=== PATIENT | male | born 1950 | race Caucasian/White ===

== ENCOUNTER 2019-04-27 11:04 | Emergency (ER) | payer MEDICARE ==
[2019-04-27] MEDS ORDERED: DIAZEPAM 5 MG TAB PO STA (12:19)
[2019-04-27] MEDS ORDERED: MECLIZINE 25 MG TAB PO STA (12:19)
--- NOTE | 2019-04-27 12:26 | ED ---
General Adult HPI - General Chief complaint: Neuro Symptoms/Deficit Stated complaint: double vision/headache Time Seen by Provider: 04/27/19 11:30 Source: patient, family, RN notes reviewed Mode of arrival: wheelchair Limitations: no limitations - History of Present Illness Initial comments: This is a 68-year-old male who presents emergency Department complaining that he is extremely dizzy and off balance. Patient states about 8 days ago he became extremely dizzy and after he was dizzy he started vomiting. Patient states he was having difficulty even walking down the hallway. Patient states he had to grab onto the grier stay up. Patient denies any similar symptoms. Patient states she's had a mild headache that's come and gone throughout the week. Patient states his symptoms have slowly improved over that week but his primary medical care doctor which she sought a centimeter the emergency department to get a full evaluation. Patient denies any chest pain or palpitations. Patient denies any shortness of breath or difficulty breathing. Patient denies any near syncopal or syncopal episodes. Patient does state at times she's had some double vision patient states moving his head deftly makes his symptoms worse. Patient has no other numbness or weakness patient denies any speech abnormalities. - Related Data Home Medications Medication Instructions Recorded Confirmed Cetirizine HCl [Zyrtec] 10 mg PO HS 07/01/14 07/04/14 Hydrocodone/Acetaminophen [[place] 1 each PO Q8HR PRN 07/01/14 07/04/14 7.5-325] Lidoderm Pain Patch (Unknown Dose) 1 patch TOPICAL DIRECTED PRN 07/01/14 07/04/14 Mens Multivitamin 1 tab PO DAILY 07/01/14 07/04/14 Metaxalone [Skelaxin] 800 mg PO TID PRN 07/01/14 07/04/14 Montelukast Sodium [Singulair] 10 mg PO HS 07/01/14 07/04/14 Mucinex 400 Mg 400 mg PO DAILY 07/01/14 07/04/14 Naproxen 500 mg PO Q12HR PRN 07/01/14 07/04/14 Omeprazole [PriLOSEC] 20 mg PO HS 07/01/14 07/04/14 diphenhydrAMINE [Benadryl] 25 mg PO HS PRN 07/01/14 07/04/14 Previous Rx's Medication Instructions Recorded Meclizine [Antivert] 25 mg PO TID #20 tab 04/27/19 Allergies Allergy/AdvReac Type Severity Reaction Status Date / Time No Known Allergies Allergy Verified 04/27/19 11:48 Review of Systems ROS Statement: Those systems with pertinent positive or pertinent negative responses have been documented in the HPI. ROS Other: All systems not noted in ROS Statement are negative. Past Medical History Past Medical History: Asthma, GERD/Reflux, Pneumonia Additional Past Medical History / Comment(s): ENVIRONMENTAL ALLERGIES, STATES VERY SMALL THROAT-HX OF VOCAL CORD PARALYSIS., BACK PAIN. History of Any Multi-Drug Resistant Organisms: None Reported Additional Past Surgical History / Comment(s): HERNIA , TESTICLE LOWERED, INGUINAL HERNIA(2006), ARSENIO KNEE ARTHROSCOPY(2007) Past Anesthesia/Blood Transfusion Reactions: Previous Problems w/ Anesthesia Additional Past Anesthesia/Blood Transfusion Reaction / Comment(s): HAS HICCUPS FOR A COUPLE DAYS POST-OP. STATES HE HAS A VERY SMALL THROAT AND WAS TOLD TO LET THE DR. KNOW IF ANY TUBES PUT DOWN HIS THROAT. HX OF VOCAL CORD PARALYSIS. Past Psychological History: No Psychological Hx Reported Smoking Status: Former smoker Past Alcohol Use History: None Reported Past Drug Use History: None Reported - Past Family History Sister(s) Family Medical History: Cancer Additional Family Medical History / Comment(s): BREAST CA General Exam - General Exam Comments Initial Comments: GENERAL: Patient is well-developed and well-nourished. Patient is nontoxic and well- hydrated and is in mild distress. ENT: Neck is soft and supple. No significant lymphadenopathy is noted. Oropharynx is clear. Moist mucous membranes. Neck has full range of motion without eliciting any pain. EYES: The sclera were anicteric and conjunctiva were pink and moist. Extraocular movements were intact and pupils were equal round and reactive to light. Eyelids were unremarkable. Patient has some nystagmus when looking laterally to the left PULMONARY: Unlabored respirations. Good breath sounds bilaterally. No audible rales rhonchi or wheezing was noted. CARDIOVASCULAR: There is a regular rate and rhythm without any murmurs gallops or rubs. ABDOMEN: Soft and nontender with normal bowel sounds. SKIN: Skin is clear with no lesions or rashes and otherwise unremarkable. NEUROLOGIC: Patient is alert and oriented x3. Cranial nerves II through XII are grossly intact. Motor and sensory are also intact. Normal speech, volume and content. Symmetrical smile. Cerebellar testing finger to nose was normal bilaterally MUSCULOSKELETAL: Normal extremities with adequate strength and full range of motion. No lower extremity swelling or edema. No calf tenderness. LYMPHATICS: No significant lymphadenopathy is noted PSYCHIATRIC: Normal psychiatric evaluation. Limitations: no limitations Course Vital Signs 04/27/19 11:45 Temperature 97.9 F Pulse Rate 65 Respiratory 16 Rate Blood Pressure 152/91 O2 Sat by Pulse 98 Oximetry Medical Decision Making - Medical Decision Making EKG shows a sinus bradycardia at 58 bpm CA interval is on a 74 QRS is 106 QT intervals 432 QTC is 424. Patient's EKG shows no ST segment elevation or depression. Patient was given Antivert and Valium in the emergency department. On r eevaluation patient stated that the vertiginous symptoms were much improved. CT of the brain showed no acute normalities. Patient did however have an area that was suspicious for aneurysm and outpatient follow-up with an MRI was discussed with the patient has family and they were in agreement with this. Patient's chest x-ray showed no acute abnormality. - Lab Data Result diagrams: 04/27/19 13:25 04/27/19 12:27 Lab Results 04/27/19 04/27/19 04/27/19 Range/Units 12:27 12:27 13:25 WBC 5.3 (3.8-10.6) k/uL RBC 4.74 (4.30-5.90) m/uL Hgb 14.9 (13.0-17.5) gm/dL Hct 42.3 (39.0-53.0) % MCV 89.2 (80.0-100.0) fL MCH 31.5 (25.0-35.0) pg MCHC 35.3 (31.0-37.0) g/dL RDW 12.9 (11.5-15.5) % Plt Count 152 (150-450) k/uL Neutrophils % 68 % Lymphocytes % 20 % Monocytes % 6 % Eosinophils % 3 % Basophils % 1 % Neutrophils # 3.6 (1.3-7.7) k/uL Lymphocytes # 1.1 (1.0-4.8) k/uL Monocytes # 0.3 (0-1.0) k/uL Eosinophils # 0.2 (0-0.7) k/uL Basophils # 0.0 (0-0.2) k/uL PT (9.0-12.0) sec INR (<1.2) APTT (22.0-30.0) sec Sodium 140 (137-145) mmol/L Potassium 4.9 (3.5-5.1) mmol/L Chloride 109 H (98-107) mmol/L Carbon Dioxide 20 L (22-30) mmol/L Anion Gap 11 mmol/L BUN 19 (9-20) mg/dL Creatinine 1.07 (0.66-1.25) mg/dL Est GFR (CKD-EPI)AfAm 82 (>60 ml/min/1.73 sqM) Est GFR (CKD-EPI)NonAf 71 (>60 ml/min/1.73 sqM) Glucose 93 (74-99) mg/dL Calcium 9.0 (8.4-10.2) mg/dL Magnesium 2.0 (1.6-2.3) mg/dL Total Bilirubin 0.9 (0.2-1.3) mg/dL AST 40 (17-59) U/L ALT 37 (4-49) U/L Alkaline Phosphatase 89 (38-126) U/L Troponin I <0.012 (0.000-0.034) ng/mL Total Protein 7.2 (6.3-8.2) g/dL Albumin 4.4 (3.5-5.0) g/dL 04/27/19 Range/Units 13:25 WBC (3.8-10.6) k/uL RBC (4.30-5.90) m/uL Hgb (13.0-17.5) gm/dL Hct (39.0-53.0) % MCV (80.0-100.0) fL MCH (25.0-35.0) pg MCHC (31.0-37.0) g/dL RDW (11.5-15.5) % Plt Count (150-450) k/uL Neutrophils % % Lymphocytes % % Monocytes % % Eosinophils % % Basophils % % Neutrophils # (1.3-7.7) k/uL Lymphocytes # (1.0-4.8) k/uL Monocytes # (0-1.0) k/uL Eosinophils # (0-0.7) k/uL Basophils # (0-0.2) k/uL PT 10.1 (9.0-12.0) sec INR 0.9 (<1.2) APTT 24.5 (22.0-30.0) sec Sodium (137-145) mmol/L Potassium (3.5-5.1) mmol/L Chloride (98-107) mmol/L Carbon Dioxide (22-30) mmol/L Anion Gap mmol/L BUN (9-20) mg/dL Creatinine (0.66-1.25) mg/dL Est GFR (CKD-EPI)AfAm (>60 ml/min/1.73 sqM) Est GFR (CKD-EPI)NonAf (>60 ml/min/1.73 sqM) Glucose (74-99) mg/dL Calcium (8.4-10.2) mg/dL Magnesium (1.6-2.3) mg/dL Total Bilirubin (0.2-1.3) mg/dL AST (17-59) U/L ALT (4-49) U/L Alkaline Phosphatase (38-126) U/L Troponin I (0.000-0.034) ng/mL Total Protein (6.3-8.2) g/dL Albumin (3.5-5.0) g/dL Disposition Clinical Impression: Vertigo Disposition: HOME SELF-CARE Condition: Good Instructions (If sedation given, give patient instructions): Vertigo (ED) Prescriptions: Meclizine [Antivert] 25 mg PO TID #20 tab Is patient prescribed a controlled substance at d/c from ED?: No Referrals: Gilberto Carcamo MD [Primary Care Provider] - 1-2 days Time of Disposition: 14:08
--- NOTE | 2019-04-27 12:51 | XR ---
EXAMINATION TYPE: XR chest 2V DATE OF EXAM: 04/27/2019 COMPARISON: 02/17/2012 HISTORY: Chest pain TECHNIQUE: Frontal and lateral views of the chest are obtained. FINDINGS: There is no focal air space opacity, pleural effusion, or pneumothorax seen. The cardiac silhouette size is within normal limits. Moderate multilevel degenerative change of the spine. The osseous structures are intact. IMPRESSION: No acute cardiopulmonary process.
--- NOTE | 2019-04-27 12:53 | CT ---
EXAMINATION TYPE: CT brain wo con DATE OF EXAM: 04/27/2019 COMPARISON: 05/30/2012 HISTORY: dizziness CT DLP: 1062.4 mGycm Automated exposure control for dose reduction was used. FINDINGS: Mild to moderate generalized degenerative change. Low-attenuation within the white matter is nonspeci fic. Calcifications in the basal ganglia are noted. No acute hemorrhage or mass effect. There is citlalli ed prominence of the cavernous segment of the left ICA. Aneurysm in the differential diagnosis. Adams es of chronic sinusitis noted. IMPRESSION: 1. Degenerative and nonspecific white matter changes most typical remote microvascular ischemia. If t here is concern for acute ischemia correlate with MRI as clinically warranted. 2. Asymmetry and prominence of the cavernous segment of the left ICA. Aneurysm is in the differential diagnosis. Recommend MRI brain with MRA [place] of [place].
[2019-04-27 12:55] LABS: Albumin 4.4 g/dL (3.5-5.0); Total Bilirubin 0.9 mg/dL (0.2-1.3); Total Protein 7.2 g/dL (6.3-8.2)
[2019-04-27 12:57] LABS: Potassium 4.9 mmol/L (3.5-5.1)
[2019-04-27 13:33] LABS: Basophils % (A) 1 %; Eosinophils # (A) 0.2 k/uL (0-0.7); Eosinophils % (A) 3 %; HCT 42.3 % (39.0-53.0); HGB 14.9 gm/dL (13.0-17.5); Lymphocytes # (A) 1.1 k/uL (1.0-4.8); Lymphocytes % (A) 20 %; MCH 31.5 pg (25.0-35.0); MCHC 35.3 g/dL (31.0-37.0); MCV 89.2 fL (80.0-100.0); Mean Platelet Volume 7.2; Monocytes # (A) 0.3 k/uL (0-1.0); Monocytes % (A) 6 %; Neutrophils # (A) 3.6 k/uL (1.3-7.7); Neutrophils % (A) 68 %; Platelet Count 152 k/uL (150-450); RBC 4.74 m/uL (4.30-5.90); RDW 12.9 % (11.5-15.5); WBC 5.3 k/uL (3.8-10.6)
[2019-04-27 13:41] LABS: INR 0.9 (<1.2); Partial Thromboplastin Time 24.5 sec (22.0-30.0); Prothrombin Time 10.1 sec (9.0-12.0)
[2019-04-27 14:19] VITALS: BP 150/88; PULSE 54; RESP 18; TEMP 98.2
== END 2019-04-27 14:19 | disposition home or self-care (01) ==
LOC: EC 11:04
DX: R42 Dizziness and giddiness (principal); H53.2 Diplopia; R51 Headache; J45.909 Unspecified asthma, uncomplicated; K21.9 Gastro-esophageal reflux disease without esophagitis; Z87.891 Personal history of nicotine dependence; Z79.899 Other long term (current) drug therapy
CPT/HCPCS: 36415; 70450; 71046; 80053; 83735; 84484; 85025; 85610; 85730; 93005; 99285

== ENCOUNTER → 2019-04-28 | Outpatient (CLI) | payer MEDICARE ==
--- NOTE | 2019-04-28 22:28 | MR ---
EXAMINATION TYPE: MR angio head wo con DATE OF EXAM: 04/28/2019 COMPARISON: CT brain April 27, 2019 HISTORY: Double vision, dizziness, loss of balance, abnormal CT TECHNIQUE: Time of flight images focusing on the [place] were performed without contrast.. 2-D and 3-D postprocessing imaging is performed on independent workstation and reviewed. FINDINGS: There is diminished caliber to the distal left vertebral artery. Vertebral arteries are tor tuous but patent bilaterally. Right is dominant. There is no significant focal stenosis or aneurysmal change in the posterior circulation. There is hypoplastic right posterior communicating artery. Ther e is patent but tortuous left posterior communicating artery. There is tortuous course to the distal internal carotid arteries bilaterally. There is small caliber right A1 segment with filling of the A2 segment due to patent anterior communicating artery which has tortuous course before branching into right and left A2 segments near image 110 mimicking aneurysm. No aneurysm is evident with particular attention to area of clinical concern distal left internal car otid artery on recent CT. IMPRESSION: No aneurysmal change at level of [place] of [place].
--- NOTE | 2019-04-28 22:32 | MR ---
EXAMINATION TYPE: MR brain wo/w con DATE OF EXAM: 04/28/2019 COMPARISON: CT brain yesterday HISTORY: Double vision, dizziness, loss of balance, abnormal CT TECHNIQUE: Multiplanar, multisequence images of the brain and brainstem is performed without and with IV contras t, utilizing 10 mL intravenous Gadavist . FINDINGS: Diffusion weighted images demonstrate no evidence of a recent infarct or other diffusion ab normality. There is no worrisome new extra-axial fluid collection. Persistent mild diffuse ventricul ar and sulcal prominence. Scattered foci of T2 hyperintensity seen throughout the superficial deep an d periventricular white matter. Lesions presumed on the basis of chronic small vessel ischemic change in patient of this age. Midline structures demonstrate normal morphology. The craniocervical junction appears within normal limits. Post contrast images demonstrate no abnormal enhancement. The dural venous sinuses appear pa tent. Some mucosal thickening and patchy fluid signal left ethmoid sinuses is redemonstrated. Remaind er paranasal sinuses are clear. Globes are intact bilaterally. IMPRESSION: 1. Confirmation of mild diffuse cerebral atrophy and mild to moderate chronic small vessel ischemic c jamese. 2. Confirmation of probable acute on chronic left ethmoid sinus disease.
== END | disposition home or self-care (01) ==
LOC: RADMRIMAIN 20:47
PROVIDERS: ATTEND Family Medicine
DX: I67.1 Cerebral aneurysm, nonruptured (principal)
CPT/HCPCS: 70544; 70553; A9585

== ENCOUNTER 2020-08-22 12:32 | Emergency (ER) | payer MEDICARE ==
[2020-08-22] MEDS ORDERED: ceFAZolin 1,000 MG VIAL (IM USE) IM STA (12:52)
[2020-08-22] MEDS ORDERED: DIPH,PERTUS(ACELL)TETVAC-LF 0.5 ML VIAL IM ONE (12:52)
[2020-08-22] MEDS ORDERED: HYDROcodone/APAP 7.5-325MG 1 EACH TAB PO ONE (12:52)
--- NOTE | 2020-08-22 13:13 | ED ---
General Adult HPI - General Chief complaint: Wound/Laceration Stated complaint: thumb lac Time Seen by Provider: 08/22/20 12:43 Source: patient Mode of arrival: ambulatory Limitations: no limitations - History of Present Illness Initial comments: 69-year-old male with a past medical history of GERD, asthma presents to the emergency department for a chief complaint of left thumb amputation. Patient reports that a metal beam fell on his thumb and cut off the tip of it. Patient denies any other injury. Tetanus is not up-to-date. Patient has no other complaints at this time including shortness of breath, chest pain, abdominal pain, nausea or vomiting, headache, or visual changes. - Related Data Home Medications Medication Instructions Recorded Confirmed Cetirizine HCl [Zyrtec] 10 mg PO HS 07/01/14 07/04/14 Hydrocodone/Acetaminophen [[place] 1 each PO Q8HR PRN 07/01/14 07/04/14 7.5-325] Lidoderm Pain Patch (Unknown Dose) 1 patch TOPICAL DIRECTED PRN 07/01/14 07/04/14 Mens Multivitamin 1 tab PO DAILY 07/01/14 07/04/14 Metaxalone [Skelaxin] 800 mg PO TID PRN 07/01/14 07/04/14 Montelukast Sodium [Singulair] 10 mg PO HS 07/01/14 07/04/14 Mucinex 400 Mg 400 mg PO DAILY 07/01/14 07/04/14 Naproxen 500 mg PO Q12HR PRN 07/01/14 07/04/14 Omeprazole [PriLOSEC] 20 mg PO HS 07/01/14 07/04/14 diphenhydrAMINE [Benadryl] 25 mg PO HS PRN 07/01/14 07/04/14 Previous Rx's Medication Instructions Recorded Meclizine [Antivert] 25 mg PO TID #20 tab 04/27/19 Allergies Allergy/AdvReac Type Severity Reaction Status Date / Time No Known Allergies Allergy Verified 08/22/20 12:36 Review of Systems ROS Statement: Those systems with pertinent positive or pertinent negative responses have been documented in the HPI. ROS Other: All systems not noted in ROS Statement are negative. Past Medical History Past Medical History: Asthma, GERD/Reflux, Pneumonia Additional Past Medical History / Comment(s): ENVIRONMENTAL ALLERGIES, STATES VERY SMALL THROAT-HX OF VOCAL CORD PARALYSIS., BACK PAIN. History of Any Multi-Drug Resistant Organisms: None Reported Past Surgical History: Hernia Repair, Orthopedic Surgery Additional Past Surgical History / Comment(s): HERNIA INFANT, TESTICLE LOWERED, INGUINAL HERNIA(2006), ARSENIO KNEE ARTHROSCOPY(2008), abd surgery Past Anesthesia/Blood Transfusion Reactions: Previous Problems w/ Anesthesia Additional Past Anesthesia/Blood Transfusion Reaction / Comment(s): HAS HICCUPS FOR A COUPLE DAYS POST-OP. STATES HE HAS A VERY SMALL THROAT AND WAS TOLD TO LET THE [facility]RSara KNOW IF ANY TUBES PUT DOWN HIS THROAT. HX OF VOCAL CORD PARALYSIS. Past Psychological History: No Psychological Hx Reported Smoking Status: Never smoker Past Alcohol Use History: None Reported Past Drug Use History: None Reported - Past Family History Sister(s) Family Medical History: Cancer Additional Family Medical History / Comment(s): BREAST CA General Exam Limitations: no limitations General appearance: alert, in no apparent distress Head exam: Present: atraumatic, normocephalic, normal inspection Eye exam: Present: normal appearance, PERRL, EOMI. Absent: scleral icterus, conjunctival injection, periorbital swelling ENT exam: Present: normal exam, mucous membranes moist Neck exam: Present: normal inspection. Absent: tenderness, meningismus, lymphadenopathy Respiratory exam: Present: normal lung sounds bilaterally. Absent: respiratory distress, wheezes, rales, rhonchi, stridor Cardiovascular Exam: Present: regular rate, normal rhythm, normal heart sounds. Absent: systolic murmur, diastolic murmur, rubs, gallop, clicks Extremities exam: Present: full ROM (Full range of motion of the MCP and IP joint of the left thumb), other (Patient has amputation of the mid to distal aspect of the distal phalanx left thumb. ) Neurological exam: Present: alert Course Vital Signs 08/22/20 12:32 Temperature 97.3 F L Pulse Rate 77 Respiratory 20 Rate Blood Pressure 152/81 O2 Sat by Pulse 95 Oximetry - Reevaluation(s) Reevaluation #1: 08/22/20 13:12 Sharon mccloudd jada @ 1300. Reevaluation #2: 08/22/20 13:34 Remi GUTIERREZ called, will call back after speaking with attending. Reevaluation #3: 08/22/20 14:00 jada Khalil at bedside Reevaluation #4: 08/22/20 14:12 On hold with [facility] ER 08/22/20 14:[address] Snowden, will accept patient to ER. Medical Decision Making - Medical Decision Making Patient does have amputation of the mid to distal aspect of the distal phalanx left thumb. He did bring amputated part of thumb in the ice water. this was wrapped in wet gauze and placed in a bag on ice. Initially had difficulty contacting orthopedics as they were in surgery. However they did call back and will be calling back again with further instruction. Tetanus is updated, patient was given IM Ancef. X-ray did reveal amputation of the mid to distal phalanx left thumb. Pt was seen at bedside by orthopedic surgery, they are recommending patient be transferred to the [facility] for reimplantation with microvascular surgery. Patient will be transferred by EMS, preferred by family. Expectations of possible reimplantation versus revisement were discussed with patient and . Disposition Clinical Impression: Amputation of thumb, left Disposition: OTHER INSTITUTION NOT DEFINED Is patient prescribed a controlled substance at d/c from ED?: No Referrals: Gilberto Carcamo MD [Primary Care Provider] - 1-2 days Time of Disposition: 14:41 - Out of Hospital Transfer - Req. Specs Out of Hospital Transfer - Requested Specifics: Other Emergency Center ([facility])
--- NOTE | 2020-08-22 13:26 | XR ---
EXAMINATION TYPE: XR finger LT DATE OF EXAM: 08/22/2020 COMPARISON: None HISTORY: Amputation TECHNIQUE: 3 view left thumb FINDINGS: There is amputation at the mid to distal portion of the distal phalanx left thumb. Degenera tive joint changes are at the proximal interphalangeal joint space. No additional fractures are evident. No radiopaque foreign bodies are evident. IMPRESSION: 1. Amputation of the mid to distal phalanx left thumb
[2020-08-22] MEDS ORDERED: MORPHINE SULFATE 4 MG/ML SYRINGE IM STA ×2 (13:47→16:04)
[2020-08-22 16:54] VITALS: BP 134/84; PULSE 88; RESP 18; TEMP 98.4
== END 2020-08-22 15:51 | disposition other institution (70) ==
LOC: EC 12:32
DX: S68.012A Complete traumatic metacarpophalangeal amputation of left thumb, initial encounter (principal); W20.8XXA Other cause of strike by thrown, projected or falling object, initial encounter; J45.909 Unspecified asthma, uncomplicated; K21.9 Gastro-esophageal reflux disease without esophagitis; Z23 Encounter for immunization
CPT/HCPCS: 73140; 90715; 99285; 90471; 96372 ×3; J2270; J0690

== ENCOUNTER 2021-01-28 13:53 | Observation (INO) | payer MEDICARE ==
--- NOTE | 2021-01-28 14:27 | ED ---
General Adult HPI - General Chief complaint: Syncope Stated complaint: syncope Source: EMS Mode of arrival: EMS Limitations: no limitations - History of Present Illness Initial comments: 70-year-old male previously healthy on no medications presents to the emergency department after he had a syncopal episode. He was at home when his son was processing some live chickens. States that this is something that he has witnessed before. He felt well earlier in the day. He began feeling lightheaded and "woozy". He ended up leaning over a table. He reports that he started to feel little bit better, stood back up and attempted to ambulate into the house. His followed closely behind him. States that he went up a couple of steps onto the [place] when he collapsed. was able to catch him and he did not sustain any trauma. He was only out for several seconds before coming to. There is no seizure-like activity. Patient did not hit his head. He denies having any nausea or vomiting. Does admit over the past 3 days he has had some sinus congestion and headache. No fevers or chills. Did have contact with a coworker that was Covid positive. He is vaccinated against Covid. Eyes having any chest pain or shortness of breath previous to the incident. No abdom inal pain. No nausea or vomiting. Has not had any stress testing in over 10 years. Denies previous history of cardiac disease. No other alleviating, precipitating or modifying factors - Related Data Home Medications Medication Instructions Recorded Confirmed Cetirizine HCl [Zyrtec] 10 mg PO HS 07/01/14 01/28/21 diphenhydrAMINE [Benadryl] 25 mg PO HS 07/01/14 01/28/21 Acetaminophen/Diphenhydramine 1 tab PO HS 01/28/21 01/28/21 [Tylenol PM 500-25mg] Aspirin EC [Ecotrin Low Dose] 81 mg PO HS 01/28/21 01/28/21 Multivitamins, Thera [Multivitamin 1 tab PO HS 01/28/21 01/28/21 (formulary)] Allergies Allergy/AdvReac Type Severity Reaction Status Date / Time No Known Allergies Allergy Verified 01/28/21 14:19 Review of Systems ROS Statement: Those systems with pertinent positive or pertinent negative responses have been documented in the HPI. ROS Other: All systems not noted in ROS Statement are negative. Past Medical History Past Medical History: Asthma, GERD/Reflux, Pneumonia Additional Past Medical History / Comment(s): ENVIRONMENTAL ALLERGIES, STATES VERY SMALL THROAT-HX OF VOCAL CORD PARALYSIS., BACK PAIN. History of Any Multi-Drug Resistant Organisms: None Reported Past Surgical History: Hernia Repair, Orthopedic Surgery Additional Past Surgical History / Comment(s): HERNIA INFANT, TESTICLE LOWERED, INGUINAL HERNIA(2006), ARSENIO KNEE ARTHROSCOPY(2007), abd surgery Past Anesthesia/Blood Transfusion Reactions: Previous Problems w/ Anesthesia Additional Past Anesthesia/Blood Transfusion Reaction / Comment(s): HAS HICCUPS FOR A COUPLE DAYS POST-OP. STATES HE HAS A VERY SMALL THROAT AND WAS TOLD TO LET THE DR. KNOW IF ANY TUBES PUT DOWN HIS THROAT. HX OF VOCAL CORD PARALYSIS. Past Psychological History: No Psychological Hx Reported Smoking Status: Never smoker Past Alcohol Use History: None Reported Past Drug Use History: None Reported - Past Family History Sister(s) Family Medical History: Cancer Additional Family Medical History / Comment(s): BREAST CA General Exam Limitations: no limitations Course Vital Signs 01/28/21 01/28/21 01/28/21 13:56 14:37 15:30 Temperature 98.0 F Pulse Rate 63 62 Pulse Rate [ 65 Sitting] Pulse Rate [ 67 Standing] Pulse Rate [ 61 Supine] Respiratory 20 20 Rate Blood Pressure 133/83 123/82 Blood Pressure 130/83 [Sitting] Blood Pressure 132/85 [Standing] Blood Pressure 120/68 [Supine] O2 Sat by Pulse 97 97 Oximetry EKG Findings - EKG Comments: EKG Findings:: EKG demonstrates a normal sinus rhythm with a ventricular rate of 63. MN interval 182. QRS 104. QTC of 417. Incomplete right bundle-branch block. No acute ST segment elevations or depressions Medical Decision Making - Medical Decision Making Upon arrival patient is placed into room 9. A thorough history and physical exam was performed. Orthostatics are obtained and are normal. Patient does have a Accu-Chek performed by EMS which is also normal. He is placed on continuous pulse ox and cardiac monitoring. 12-lead EKG was performed. Laboratory studies are obtained and the patient is swabbed for Covid. Laboratory studies are reviewed. Platelet count is 127. Glucose 100. Covid is detected. Chest x-ray demonstrates no active cardiopulmonary disease. Results are discussed the patient. I discussed with the pharmacist giving the patient Regen even though he is vaccinated with mild symptoms. He states that it is up to the discretion of the patient's. He wanted. I discussed this with the patient and he does want antibody infusion. Patient will be admitted afterwards for syncopal episode. spoke with Dr. Guidry who agreed to admit the patient. Cardiology and an echo ordered. Patient remained in stable condition awaiting a bed on the floor - Lab Data Result diagrams: 01/28/21 14:30 01/28/21 14:30 Lab Results 01/28/21 01/28/21 01/28/21 Range/Units 14:30 14:30 14:30 WBC 4.1 (3.8-10.6) k/uL RBC 4.31 (4.30-5.90) m/uL Hgb 14.3 (13.0-17.5) gm/dL Hct 38.7 L (39.0-53.0) % MCV 89.8 (80.0-100.0) fL MCH 33.2 (25.0-35.0) pg MCHC 37.0 (31.0-37.0) g/dL RDW 13.3 (11.5-15.5) % Plt Count 127 L (150-450) k/uL MPV 7.3 Neutrophils % 73 % Lymphocytes % 11 % Monocytes % 10 % Eosinophils % 2 % Basophils % 1 % Neutrophils # 3.0 (1.3-7.7) k/uL Lymphocytes # 0.4 L (1.0-4.8) k/uL Monocytes # 0.4 (0-1.0) k/uL Eosinophils # 0.1 (0-0.7) k/uL Basophils # 0.0 (0-0.2) k/uL Hyperchromasia Slight PT 10.2 (9.0-12.0) sec INR 0.9 (<1.2) APTT 21.4 L (22.0-30.0) sec Sodium 140 (137-145) mmol/L Potassium 4.4 (3.5-5.1) mmol/L Chloride 109 H (98-107) mmol/L Carbon Dioxide 22 (22-30) mmol/L Anion Gap 9 mmol/L BUN 17 (9-20) mg/dL Creatinine 1.14 (0.66-1.25) mg/dL Est GFR (CKD-EPI)AfAm 75 (>60 ml/min/1.73 sqM) Est GFR (CKD-EPI)NonAf 65 (>60 ml/min/1.73 sqM) Glucose 100 H (74-99) mg/dL Calcium 8.5 (8.4-10.2) mg/dL Total Bilirubin 0.8 (0.2-1.3) mg/dL AST 30 (17-59) U/L ALT 29 (4-49) U/L Alkaline Phosphatase 82 (38-126) U/L Troponin I (0.000-0.034) ng/mL Total Protein 6.3 (6.3-8.2) g/dL Albumin 4.0 (3.5-5.0) g/dL Coronavirus (PCR) (Not Detectd) 01/28/21 01/28/21 Range/Units 14:30 14:30 WBC (3.8-10.6) k/uL RBC (4.30-5.90) m/uL Hgb (13.0-17.5) gm/dL Hct (39.0-53.0) % MCV (80.0-100.0) fL MCH (25.0-35.0) pg MCHC (31.0-37.0) g/dL RDW (11.5-15.5) % Plt Count (150-450) k/uL MPV Neutrophils % % Lymphocytes % % Monocytes % % Eosinophils % % Basophils % % Neutrophils # (1.3-7.7) k/uL Lymphocytes # (1.0-4.8) k/uL Monocytes # (0-1.0) k/uL Eosinophils # (0-0.7) k/uL Basophils # (0-0.2) k/uL Hyperchromasia PT (9.0-12.0) sec INR (<1.2) APTT (22.0-30.0) sec Sodium (137-145) mmol/L Potassium (3.5-5.1) mmol/L Chloride (98-107) mmol/L Carbon Dioxide (22-30) mmol/L Anion Gap mmol/L BUN (9-20) mg/dL Creatinine (0.66-1.25) mg/dL Est GFR (CKD-EPI)AfAm (>60 ml/min/1.73 sqM) Est GFR (CKD-EPI)NonAf (>60 ml/min/1.73 sqM) Glucose (74-99) mg/dL Calcium (8.4-10.2) mg/dL Total Bilirubin (0.2-1.3) mg/dL AST (17-59) U/L ALT (4-49) U/L Alkaline Phosphatase (38-126) U/L Troponin I <0.012 (0.000-0.034) ng/mL Total Protein (6.3-8.2) g/dL Albumin (3.5-5.0) g/dL Coronavirus (PCR) Detected A (Not Detectd) Disposition Clinical Impression: Syncope and collapse Disposition: ADMITTED IP TO THIS [facility] Condition: Stable Is patient prescribed a controlled substance at d/c from ED?: No Decision to Admit Reason: Admit from EC Decision Date: 01/28/21 Decision Time: 17:06
[2021-01-28 14:53] LABS: Basophils % (A) 1 %; Eosinophils # (A) 0.1 k/uL (0-0.7); Eosinophils % (A) 2 %; HCT 38.7 % (39.0-53.0); HGB 14.3 gm/dL (13.0-17.5); Hyperchromasia Slight; Lymphocytes # (A) 0.4 k/uL (1.0-4.8); Lymphocytes % (A) 11 %; MCH 33.2 pg (25.0-35.0); MCV 89.8 fL (80.0-100.0); Mean Platelet Volume 7.3; Monocytes # (A) 0.4 k/uL (0-1.0); Monocytes % (A) 10 %; Neutrophils % (A) 73 %; Platelet Count 127 k/uL (150-450); RBC 4.31 m/uL (4.30-5.90); RDW 13.3 % (11.5-15.5); WBC 4.1 k/uL (3.8-10.6)
[2021-01-28 14:57] LABS: Calcium 8.5 mg/dL (8.4-10.2); Potassium 4.4 mmol/L (3.5-5.1); Total Bilirubin 0.8 mg/dL (0.2-1.3); Total Protein 6.3 g/dL (6.3-8.2)
[2021-01-28 14:59] LABS: INR 0.9 (<1.2); Prothrombin Time 10.2 sec (9.0-12.0)
[2021-01-28 15:09] LABS: Partial Thromboplastin Time 21.4 sec (22.0-30.0)
--- NOTE | 2021-01-28 15:20 | XR ---
EXAMINATION TYPE: XR chest 2V DATE OF EXAM: 01/28/2021 COMPARISON: 04/27/2019 HISTORY: Syncope TECHNIQUE: 2 views FINDINGS: There is no heart failure nor confluent pneumonic infiltrate. Costophrenic angles are clear . There are chest leads. IMPRESSION: No active cardiopulmonary disease. Normal heart. No change.
[2021-01-28] MEDS ORDERED: SODIUM CHLORIDE 0.9% 50 ML IVPB ONE (16:00)
[2021-01-28] MEDS ORDERED: CASIRIVIMAB (REGN10933) (EUA) 600 MG, IMDEVIMAB (REGN10987) (EUA) 600 MG in SODIUM CHLO... IVPB ONE (16:00)
[2021-01-28] MEDS ORDERED: NALOXONE 0.4 MG/ML 1 ML VIAL IV PRN (17:24)
[2021-01-28] MEDS ORDERED: NON FORMULARY DRUG (Acetaminophen/Diphenhydramine [Tylenol Pm 500-25mg] 1 EACH Tablet) PO SCH (21:00)
[2021-01-28] MEDS: ASPIRIN 81 MG PO SCH (21:18)
[2021-01-28] MEDS: LORATADINE 10 MG TAB PO SCH (21:18)
[2021-01-28] MEDS: diphenhydrAMINE 25 MG CAP PO SCH (21:18)
[2021-01-28] MEDS: MULTIVITAMINS, THERA 1 EACH TAB PO SCH (21:18)
[2021-01-29] MEDS: SODIUM CHLORIDE 0.9% 1,000 ML IV SCH ×2 (08:33→17:36)
[2021-01-29 09:05] LABS: Basophils # (A) 0.02 X 10*3/uL (0.00-0.10); Basophils % (A) 0.4 %; Eosinophils # (A) 0.04 X 10*3/uL (0.04-0.35); Eosinophils % (A) 0.8 %; HCT 39.5 % (39.6-50.0); Lymphocytes # (A) 0.88 X 10*3/uL (0.90-5.00); Lymphocytes % (A) 18.6 %; MCH 30.4 pg (27.0-32.0); MCHC 32.9 g/dL (32.0-37.0); MCV 92.5 fL (80.0-97.0); Mean Platelet Volume 10.3 fL (9.5-12.2); Monocytes # (A) 0.61 X 10*3/uL (0.20-1.00); Monocytes % (A) 12.9 %; Neutrophils # (A) 3.16 X 10*3/uL (1.80-7.70); Neutrophils % (A) 67.1 %; Platelet Count 120 X 10*3/uL (140-440); RBC 4.27 X 10*6/uL (4.40-5.60); RDW 12.8 % (11.5-14.5); WBC 4.72 X 10*3/uL (4.50-10.00)
--- NOTE | 2021-01-29 10:15 | P.CRDCN ---
History of Present Illness History of present illness: HISTORY OF PRESENTING ILLNESS This is a pleasant 70-year-old male past medical history significant for GERD, asthma. 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 We have been asked to see in consultation for syncope. Spoke with patient in the emergency department, he presents to the emergency department after a syncopal episode. Yesterday he was at home with his son processing chickens. He states he began feeling lightheaded and "woozy", he proceeded to lean over the table. He reported feeling slightly better and proceeded to walk into his house. States that he went up a [place] steps onto the [place] when he collapsed. was able to catch him and he did not sustain any trauma. This episode only lasted a few seconds. Denies chest pain, shortness of breath, dizziness, nausea, vomiting, diaphoresis, fever or chills. Denies seizure-like activity. He does state over the past 3 days he has had some sinus congestion and headache. Did have contact with a coworker that was Covid positive. He is vaccinated against Covid. He denies history of coronary artery disease, [place], stroke, hypertension, diabetes, dyslipidemia. Denies family history of coronary disease. Denies previous history of cardiac disease. He is a nonsmoker. On admission patient found to be COVID-19 positive DIAGNOSTICS EKG reveals sinus rhythm, heart rate 64, incomplete right branch block, no significant ST-T T wave abnormalities. Prior EKG in 2019 with similar findings. Chest xray no acute cardiopulmonary process. Laboratory reviewed, WBC 4.7, hemoglobin 13, platelets 128, sodium 140, potassium 4.4, BUN 17, serum creatinine 1.1, troponin negative 2, COVID-19 PCR positive Current home medications include Zyrtec, PRN Benadryl, PRN Tylenol, aspirin 81mg daily , multivitamin REVIEW OF SYSTEMS At the time of my exam: CONSTITUTIONAL: Denies fever or chills. CARDIOVASCULAR: Denies chest pain, shortness of breath, orthopnea, PND or palpitations. RESPIRATORY: +congestion Denies cough. GASTROINTESTINAL: Denies abdominal pain, diarrhea, constipation, nausea or vomiting. MUSCULOSKELETAL: Denies myalgias. NEUROLOGIC: +headache Denies numbness, tingling, weakness. ENDOCRINE: Denies fatigue, weight change, polydipsia or polyurina. GENITOURINARY: Denies burning, hematuria or urgency with micturation. HEMATOLOGIC: Denies history of anemia or bleeding. PHYSICAL EXAMINATION Blood pressure 125/79, heart rate 65, afebrile, maintaining saturations on room air CONSTITUTIONAL: No apparent distress. NEUROLOGIC EXAMINATION: Patient is awake, alert and oriented x3. Full examination not performed due to covid-19 infection ASSESSMENT Syncope, most likely vasovagal Covid-19 infection History of asthma History of GERD PLAN From cardiology perspective recommend IV fluids 0.9NaCl at 75mL/hr 2D echocardiogram ordered Patient on cardiac telemetry If no acute findings on echocardiogram we will follow the patient if there is a need. Thank you kindly for this consultation Nurse Practitioner note has been reviewed, I agree with a documented findings and plan of care. Patient was seen and examined. Past Medical History Past Medical History: Asthma, GERD/Reflux, Pneumonia Additional Past Medical History / Comment(s): ENVIRONMENTAL ALLERGIES, STATES VERY SMALL THROAT-HX OF VOCAL CORD PARALYSIS., BACK PAIN. History of Any Multi-Drug Resistant Organisms: None Reported Past Surgical History: Hernia Repair, Orthopedic Surgery Additional Past Surgical History / Comment(s): HERNIA INFANT, TESTICLE LOWERED, INGUINAL HERNIA(2006), ARSENIO KNEE ARTHROSCOPY(2007), abd surgery Past Anesthesia/Blood Transfusion Reactions: Previous Problems w/ Anesthesia Additional Past Anesthesia/Blood Transfusion Reaction / Comment(s): HAS HICCUPS FOR A COUPLE DAYS POST-OP. STATES HE HAS A VERY SMALL THROAT AND WAS TOLD TO LET THE [facility] KNOW IF ANY TUBES PUT DOWN HIS THROAT. HX OF VOCAL CORD PARALYSIS. Past Psychological History: No Psychological Hx Reported Smoking Status: Never smoker Past Alcohol Use History: None Reported Past Drug Use History: None Reported - Past Family History Sister(s) Family Medical History: Cancer Additional Family Medical History / Comment(s): BREAST CA Medications and Allergies Home Medications Medication Instructions Recorded Confirmed Type Cetirizine HCl [Zyrtec] 10 mg PO HS 07/01/14 01/28/21 History diphenhydrAMINE [Benadryl] 25 mg PO HS 07/01/14 01/28/21 History Acetaminophen/Diphenhydramine 1 tab PO HS 01/28/21 01/28/21 History [Tylenol PM 500-25mg] Aspirin EC [Ecotrin Low Dose] 81 mg PO HS 01/28/21 01/28/21 History Multivitamins, Thera [Multivitamin 1 tab PO HS 01/28/21 01/28/21 History (formulary)] Allergies Allergy/AdvReac Type Severity Reaction Status Date / Time No Known Allergies Allergy Verified 01/28/21 14:19 Physical Exam Vitals: Vital Signs Temp Pulse Pulse Pulse Pulse Resp BP 01/29/21 06:46 98.7 F 65 18 125/79 01/29/21 03:49 85 20 120/67 01/28/21 23:06 58 L 18 01/28/21 21:20 99 18 01/28/21 20:16 73 18 139/82 01/28/21 18:30 64 20 138/81 01/28/21 15:30 62 20 123/82 01/28/21 14:37 65 67 61 01/28/21 13:56 98.0 F 63 20 133/83 BP BP BP Pulse Ox 01/29/21 06:46 99 01/29/21 03:49 95 01/28/21 23:06 01/28/21 21:20 98 01/28/21 20:16 98 01/28/21 18:30 96 01/28/21 15:30 97 01/28/21 14:37 130/83 132/85 120/68 01/28/21 13:56 97 Intake and Output 01/28/21 01/29/21 01/29/21 22:59 06:59 14:59 Other: Weight 111.13 kg Results 01/29/21 06:45 01/28/21 14:30 Cardiac Enzymes 01/28/21 01/28/21 01/28/21 Range/Units 14:30 14:30 19:36 AST 30 (17-59) U/L Troponin I <0.012 <0.012 (0.000-0.034) ng/mL 01/28/21 Range/Units 22:20 AST (17-59) U/L Troponin I <0.012 (0.000-0.034) ng/mL Coagulation 01/28/21 Range/Units 14:30 PT 10.2 (9.0-12.0) sec APTT 21.4 L (22.0-30.0) sec CBC 01/28/21 01/29/21 Range/Units 14:30 06:45 WBC 4.1 4.72 (3.8-10.6) k/uL RBC 4.31 4.27 L (4.30-5.90) m/uL Hgb 14.3 13.0 (13.0-17.5) gm/dL Hct 38.7 L 39.5 L (39.0-53.0) % Plt Count 127 L 120 L (150-450) k/uL Comprehensive Metabolic Panel 01/28/21 Range/Units 14:30 Sodium 140 (137-145) mmol/L Potassium 4.4 (3.5-5.1) mmol/L Chloride 109 H (98-107) mmol/L Carbon Dioxide 22 (22-30) mmol/L BUN 17 (9-20) mg/dL Creatinine 1.14 (0.66-1.25) mg/dL Glucose 100 H (74-99) mg/dL Calcium 8.5 (8.4-10.2) mg/dL AST 30 (17-59) U/L ALT 29 (4-49) U/L Alkaline Phosphatase 82 (38-126) U/L Total Protein 6.3 (6.3-8.2) g/dL Albumin 4.0 (3.5-5.0) g/dL Current Medications Generic Name Dose Route Start Last Admin Trade Name Freq PRN Reason Stop Dose Admin Aspirin 81 mg 01/28/21 21:00 01/28/21 21:18 Aspirin 81 Mg PO 81 mg HS RIMA Administration Diphenhydramine HCl 25 mg 01/28/21 21:00 01/28/21 21:18 Diphenhydramine 25 Mg Cap PO 25 mg HS RIMA Administration Sodium Chloride 1,000 mls @ 75 mls/hr 01/29/21 08:30 01/29/21 08:33 Saline 0.9% IV 75 mls/hr .[id number] RIMA Administration Loratadine 10 mg 01/28/21 21:00 01/28/21 21:18 Loratadine 10 Mg Tab PO 10 mg HS RIMA Administration Multivitamins 1 each 01/28/21 21:00 01/28/21 21:18 Multivitamins, Thera 1 Each Tab PO 1 each HS RIMA Administration Naloxone HCl 0.2 mg 01/28/21 17:24 Naloxone 0.4 Mg/Ml 1 Ml Vial IV Q2M PRN Opioid Reversal Intake and Output 01/28/21 01/29/21 01/29/21 22:59 06:59 14:59 Other: Weight 111.13 kg 01/29/21 06:45 01/28/21 14:30
[2021-01-29 10:16] LABS: African American GFR (CKD) 61.3 (60.0-200.0); Anion Gap 13.2 mmol/L (4.00-12.00); BUN/Creat Ratio 11.79 Ratio (12.00-20.00); Blood Urea Nitrogen 15.8 mg/dL (9.0-27.0); Calcium 8.7 mg/dL (8.7-10.3); Carbon Dioxide 20.7 mmol/L (21.6-31.8); Non-African American GFR(CKD) 52.9 (60.0-200.0); Potassium 4.6 mmol/L (3.5-5.5)
--- NOTE | 2021-01-29 12:00 | ECHOF ---
Referral Reason:syncope MEASUREMENTS -------- HEIGHT: 182.9 cm WEIGHT: 111.1 kg BP: RVIDd: 4.0 cm (< 3.3) IVSd: 1.1 cm (0.6 - 1.1) LVIDd: 5.0 cm (3.9 - 5.3) LVPWd: 1.4 cm (0.6 - 1.1) IVSs: 1.8 cm LVIDs: 3.0 cm LVPWs: 1.9 cm Ao Diam: 3.1 cm (2.0 - 3.7) AV Cusp: 2.4 cm (1.5 - 2.6) LA Diam: 4.4 cm (2.7 - 3.8) MV EXCURSION: 20.171 mm (> 18.000) MV EF SLOPE: 29 mm/s (70 - 150) EPSS: 0.7 cm MV E Alexey: 0.50 m/s MV DecT: 236 ms MV A Alexey: 0.69 m/s MV E/A Ratio: 0.73 RAP: 5.00 mmHg RVSP: 24.18 mmHg FINDINGS -------- Sinus rhythm. Pt is Covid positive. LV size, wall thickness and systolic function are normal, with an EF greater than 55%. The left diana tricular size is normal. The right ventricle is normal in size. The left atrial size is normal. The right atrial size is normal. There is mild aortic valve sclerosis. There is mild aortic regurgitation. Mild mitral regurgitation is present. Mild tricuspid regurgitation present. Right ventricular systolic pressure is normal at < 35 mmHg. There is no pulmonic regurgitation present. There is no pericardial effusion. CONCLUSIONS -------- 1. Pt is Covid positive. 2. LV size, wall thickness and systolic function are normal, with an EF greater than 55%. 3. The left ventricular size is normal. 4. The right ventricle is normal in size. 5. The left atrial size is normal. 6. The right atrial size is normal. 7. There is mild aortic valve sclerosis. 8. There is mild aortic regurgitation. 9. Mild mitral regurgitation is present. 10. Mild tricuspid regurgitation present. 11. There is no pericardial effusion. OPERATOR SUPPLY: Luh Noland RDCS
--- NOTE | 2021-01-29 14:01 | P.HPIM ---
History of Present Illness H&P Date: 01/29/21 Chief Complaint: Syncope Patient is a 70-year-old male with a known history of asthma, GERD, history of vocal cord paralysis, back pain presents to ER status post syncopal episode. 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 Patient was being followed by his and suddenly collapsed after couple of steps. His is able to catch him and did not hit his head or any other trauma. Patient immediately came back to consciousness and no seizure-like activity was witnessed. Denied any focal weakness. Denied any nausea or vomiting. Denied any complaints of chest pain or shortness of breath. No fever no chills. Apparently patient did have contact with a coworker who was covered positive. Patient is vaccinated for COVID-19. Denied any complaints of nausea vomiting or diarrhea. No abdominal pain. No dysuria or hematuria. Denied any loss of taste or smell sensation. No recent travel. Chest x-ray showed showed normal heart rate no change. EKG showed normal sinus rhythm. Next and patient was afebrile on admission and is saturating at 95-99% on room air. Patient was given a dose of monoclonal antibodies in the ER. Laboratory data showed WBC 4.1 hemoglobin 14.3, platelets 127 lymphocytes 0.4F Sodium 140 potassium 4.4 chloride 109 BUN 17 and creatinine 1.14 Troponin 3 negative and liver enzymes are not elevated [place] PCR detected. Review of Systems Constitutional: Patient denies any fever or chills . No generalized weakness or weight loss. Abdomen: Patient denied nausea vomiting and diarrhea and abdominal pain. Cardiovascular: Patient denies any chest pain or short of breath no palpitations. Respiratory: patient denied any cough is from production. No shortness of breath Neurologic: Patient denied any numbness or tingling headache. Dizziness. Musculoskeletal: Patient denies any complaints of joint swelling or deformity. Skin: Negative Psychiatric: Negative Endocrine: No heat or cold intolerance. No recent weight gain. Genitourinary: No dysuria or hematuria. All other 14 point ROS negative except the above Past Medical History Past Medical History: Asthma, GERD/Reflux, Pneumonia Additional Past Medical History / Comment(s): ENVIRONMENTAL ALLERGIES, STATES VERY SMALL THROAT-HX OF VOCAL CORD PARALYSIS., BACK PAIN. History of Any Multi-Drug Resistant Organisms: None Reported Past Surgical History: Hernia Repair, Orthopedic Surgery Additional Past Surgical History / Comment(s): HERNIA , TESTICLE LOWERED, INGUINAL HERNIA(2006), ARSENIO KNEE ARTHROSCOPY(2007), abd surgery Past Anesthesia/Blood Transfusion Reactions: Previous Problems w/ Anesthesia Additional Past Anesthesia/Blood Transfusion Reaction / Comment(s): HAS HICCUPS FOR A COUPLE DAYS POST-OP. STATES HE HAS A VERY SMALL THROAT AND WAS TOLD TO LET THE [facility] KNOW IF ANY TUBES PUT DOWN HIS THROAT. HX OF VOCAL CORD PARALYSIS. Past Psychological History: No Psychological Hx Reported Smoking Status: Never smoker Past Alcohol Use History: None Reported Past Drug Use History: None Reported - Past Family History Sister(s) Family Medical History: Cancer Additional Family Medical History / Comment(s): BREAST CA Medications and Allergies Home Medications Medication Instructions Recorded Confirmed Type Cetirizine HCl [Zyrtec] 10 mg PO HS 07/01/14 01/28/21 History diphenhydrAMINE [Benadryl] 25 mg PO HS 07/01/14 01/28/21 History Acetaminophen/Diphenhydramine 1 tab PO HS 01/28/21 01/28/21 History [Tylenol PM 500-25mg] Aspirin EC [Ecotrin Low Dose] 81 mg PO HS 01/28/21 01/28/21 History Multivitamins, Thera [Multivitamin 1 tab PO HS 01/28/21 01/28/21 History (formulary)] Allergies Allergy/AdvReac Type Severity Reaction Status Date / Time No Known Allergies Allergy Verified 01/28/21 14:19 Physical Exam Vitals: Vital Signs Temp Pulse Pulse Pulse Pulse Resp BP 01/29/21 06:46 98.7 F 65 18 125/79 01/29/21 03:49 85 20 120/67 01/28/21 23:06 58 L 18 01/28/21 21:20 99 18 01/28/21 20:16 73 18 139/82 01/28/21 18:30 64 20 138/81 01/28/21 15:30 62 20 123/82 01/28/21 14:37 65 67 61 01/28/21 13:56 98.0 F 63 20 133/83 BP BP BP Pulse Ox 01/29/21 06:46 99 01/29/21 03:49 95 01/28/21 23:06 01/28/21 21:20 98 01/28/21 20:16 98 01/28/21 18:30 96 01/28/21 15:30 97 01/28/21 14:37 130/83 132/85 120/68 01/28/21 13:56 97 Intake and Output 01/28/21 01/29/21 01/29/21 22:59 06:59 14:59 Other: Weight 111.13 kg PHYSICAL EXAMINATION: Patient is lying in the bed comfortably, no acute distress, awake alert and oriented.. HEENT: Normocephalic. Neck is supple. Pupils reactive. Nostrils clear. Oral cavity is moist. Neck reveals no JVD, carotid bruits, or thyromegaly. CHEST EXAMINATION: Trachea is central. Symmetrical expansion. Lung page clear to auscultation and percussion. CARDIAC: Normal S1, S2 with no gallops. No murmurs ABDOMEN: Soft. Bowel sounds normal. No organomegaly. No abdominal bruits. Extremities: reveal no edema. No clubbing or cyanosis Neurologically awake, alert, oriented x3 with well-coordinated movements. No focal deficits noted Skin: No rash or skin lesions. Psychiatric: Coperative. Nonsuicidal Musculoskeletal: No joint swelling or deformity. Normal range of motion. Results CBC & Chem 7: 01/29/21 06:45 01/29/21 06:45 Labs: Abnormal Lab Results - Last 24 Hours (Table) 01/28/21 01/28/21 01/28/21 Range/Units 14:30 14:30 14:30 RBC (4.40-5.60) X 10*6/uL Hct 38.7 L (39.0-53.0) % Plt Count 127 L (150-450) k/uL Lymphocytes # 0.4 L (1.0-4.8) k/uL APTT 21.4 L (22.0-30.0) sec Chloride 109 H (98-107) mmol/L Carbon Dioxide (21.6-31.8) mmol/L Anion Gap (4.00-12.00) mmol/L Est GFR (CKD-EPI)NonAf (60.0-200.0) BUN/Creatinine Ratio (12.00-20.00) Ratio Glucose 100 H (74-99) mg/dL Coronavirus (PCR) (Not Detectd) 01/28/21 01/29/21 01/29/21 Range/Units 14:30 06:45 06:45 RBC 4.27 L (4.40-5.60) X 10*6/uL Hct 39.5 L (39.0-53.0) % Plt Count 120 L (150-450) k/uL Lymphocytes # 0.88 L (1.0-4.8) k/uL APTT (22.0-30.0) sec Chloride (98-107) mmol/L Carbon Dioxide 20.7 L (21.6-31.8) mmol/L Anion Gap 13.20 H (4.00-12.00) mmol/L Est GFR (CKD-EPI)NonAf 52.9 L (60.0-200.0) BUN/Creatinine Ratio 11.79 L (12.00-20.00) Ratio Glucose (74-99) mg/dL Coronavirus (PCR) Detected A (Not Detectd) Thrombosis Risk Factor Assmnt - DVT/VTE Prophylaxis DVT/VTE Prophylaxis: Pharmacologic Prophylaxis ordered - Choose All That Apply Each Risk Factor Represents 2 Points: Age 61-74 years Thrombosis Risk Factor Assessment Total Risk Factor Score: 2 Thrombosis Risk Factor Assessment Level: Low Risk Assessment and Plan Assessment: Acute syncopal episode likely orthostatic hypotension versus vasovagal Acute COVID-19 infection. Asthma not in exacerbation GERD History of vocal cord paralysis DVT prophylaxis with heparin subcu Plan: Patient will be continued on IV hydration with normal saline. Monitor respiratory status closely. Patient is tested positive for COVID-19 infection and no pneumonia noted on chest x-ray. Orthostatic vitals negative. Patient received monoclonal antibodies while in the ER. Continue with telemetry monitoring. Currently denied any complaints of dizziness or lightheadedness. 2-D echo cardiac was ordered and carotid duplex as well. Patient was seen by cardiology. Continue to follow closely. Time with Patient: Greater than 30
--- NOTE | 2021-01-29 15:32 | US ---
EXAMINATION TYPE: US carotid duplex BILAT DATE OF EXAM: 01/29/2021 COMPARISON: NONE CLINICAL HISTORY: Syncope. Syncope EXAM MEASUREMENTS: RIGHT: Peak Systolic Velocity (PSV) cm/sec ----- Right CCA: 115 ----- Right ICA: 105 ----- Right ECA: 124 ICA/CCA ratio: 0.9 RIGHT: End Diastole cm/sec ----- Right CCA: 16.2 ----- Right ICA: 24.0 ----- Right ECA: 0.0 LEFT: Peak Systolic Velocity (PSV) cm/sec ----- Left CCA: 157 ----- Left ICA: 142 ----- Left ECA: 105 ICA/CCA ratio: 0.9 LEFT: End Diastole cm/sec ----- Left CCA: 30.3 ----- Left ICA: 47.5 ----- Left ECA: 10.7 VERTEBRALS (direction of flow): Right Vertebral: Antegrade Left Vertebral: Antegrade Rhythm: Normal Grayscale, color Doppler, spectral Doppler imaging performed of the carotid arteries. Waveform analys is shows peak systolic velocity elevation in the internal carotid artery in the left with a elevation of the end-diastolic velocity but no elevation of the ICA to CCA ratio. No significant stenosis seen IMPRESSION: Findings felt not likely to represent hemodynamic significant stenosis of the proximal i nternal carotid arteries by Doppler criteria, an indirect measurement of carotid stenosis. Criteria for Assigning % of Stenosis / Diameter reduction (Estimation based on the indirect measurements of the internal carotid artery velocities (ICA PSV). 1. Normal (no stenosis)=ICA PSV < 125 cm/s: ratio < 2.0: ICA EDV<40 cm/s. 2. Less than 50% stenosis=ICA PSV < 125 cm/s: ratio < 2.0: ICA EDV<40 cm/s. 3. 50 to 69% stenosis=ICA PSV of 125 to 230 cm/s: ration 2.0 ? 4.0: ICA EDV 40-100 cm/s. 4. Greater than 70% stenosis to near occlusion= ICA PSV > 230 cm/s: ratio > 4.0: ICA EDV > 100 cm/s. 5. Near occlusion= ICA PSV velocities may be low or undetectable: variable ratio and ICA EDV. 6. Total occlusion=unable to detect flow.
[2021-01-29] MEDS: HEPARIN SODIUM,PORCINE/PF 5,000 UNIT/0.5 ML SYRINGE SQ SCH ×2 (17:36→21:58)
[2021-01-29] MEDS: diphenhydrAMINE 25 MG CAP PO SCH (21:58)
[2021-01-29] MEDS: LORATADINE 10 MG TAB PO SCH (21:58)
[2021-01-29] MEDS: MULTIVITAMINS, THERA 1 EACH TAB PO SCH (21:58)
[2021-01-29] MEDS: ASPIRIN 81 MG PO SCH (21:58)
[2021-01-30 06:09] LABS: African American GFR (CKD) 76 (>60 ml/min/1.73 sqM); Anion Gap 8 mmol/L; Blood Urea Nitrogen 18 mg/dL (9-20); Calcium 8.5 mg/dL (8.4-10.2); Carbon Dioxide 24 mmol/L (22-30); Chloride 107 mmol/L (98-107); Glucose 96 mg/dL (74-99); Non-African American GFR(CKD) 65 (>60 ml/min/1.73 sqM); Potassium 4.3 mmol/L (3.5-5.1); Sodium 139 mmol/L (137-145)
[2021-01-30 06:43] LABS: Basophils % (A) 1 %; Eosinophils # (A) 0.1 k/uL (0-0.7); Eosinophils % (A) 3 %; HCT 36.8 % (39.0-53.0); HGB 13.3 gm/dL (13.0-17.5); Hyperchromasia Slight; Lymphocytes # (A) 1.2 k/uL (1.0-4.8); Lymphocytes % (A) 38 %; MCH 32.7 pg (25.0-35.0); MCHC 36.1 g/dL (31.0-37.0); MCV 90.6 fL (80.0-100.0); Mean Platelet Volume 7.6; Monocytes # (A) 0.3 k/uL (0-1.0); Monocytes % (A) 9 %; Neutrophils # (A) 1.4 k/uL (1.3-7.7); Neutrophils % (A) 45 %; Platelet Count 119 k/uL (150-450); RBC 4.06 m/uL (4.30-5.90); RDW 13.2 % (11.5-15.5); WBC 3.2 k/uL (3.8-10.6)
[2021-01-30 08:49] LABS: Magnesium 1.8 mg/dL (1.6-2.3)
[2021-01-30] MEDS: HEPARIN SODIUM,PORCINE/PF 5,000 UNIT/0.5 ML SYRINGE SQ SCH (08:58)
[2021-01-30 09:48] LABS: C Reactive Protein 2.7 mg/dL (<1.0)
[2021-01-30 10:30] VITALS: RESP 14
[2021-01-30] MEDS: SODIUM CHLORIDE 0.9% 1,000 ML IV SCH (13:42)
[2021-01-30 16:03] VITALS: BP 160/90; PULSE 65; TEMP 98
--- NOTE | 2021-01-30 19:09 | P.DS ---
Providers Date of admission: 01/28/21 17:25 Expected date of discharge: 01/30/21 Attending physician: Gilberto Carcamo Consults: 01/28/21 17:25 Consult Physician Urgent Consulting Provider: [facility] Consult Reason/Comments: acute syncope Do you want consulting provider notified?: Yes Primary care physician: Gilberto Carcamo Hospital Course: 70-year-old male with significant medical history of asthma/GERD/history of vocal cord paralysis/back pain was admitted to the hospital for post syncopal episode. 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 He stated, that after a few steps he had a blackout. No noted trauma to head or neck. Patient extensive diagnostic workup in the emergency department revealing a hemoglobin of 14.3 and hematocrit of 38.7, platelets of 127, troponins negative, and-positive PCR for COVID-19. Ch est x-ray no acute cardiopulmonary disease. Cardiology was consulted for syncopal episode, echocardiogram revealed ejection fraction greater than 55%, bilateral carotid Doppler, findings not likely to represent emote dynamic significant stenosis of the proximal internal carotid arteries by Doppler criteria. Covid 19 markers obtained d-dimer negative, fibrinogen level within acceptable limits of 368 mildly elevated CRP of 2.7. Patient was treated with IV hydration with significant increase in strength and ability to ambulate without any episodes of dizziness, chest pain, palpitations or shortness of breath noted. Patient will be discharged in stable condition with guarded prognosis due to multiple comorbidities. Patient to follow-up with primary care 1-2 days. Patient structure to return to the emergency department dizziness, blurred vision, headache shortness of breath, chest pain, or new additional symptoms occur. Assessment: Acute syncopal episode likely orthostatic hypotension versus vasovagal Acute COVID-19 infection. Asthma not in exacerbation GERD History of vocal cord paralysis Final diagnosis Acute syncopal episode related to orthostatic hypotension, resolved with IV hydration; normal carotid ultrasound, echocardiogram ejection fraction greater than 55% Acute Covid 19 infection, no elevation in inflammatory markers, chest x-ray norm al, echocardiogram normal; patient to be discharged on seeing, vitamin C and vitamin D. Health Concerns: Complexity of medical treatment plan Acute Covid 19 infection Pertinent Studies: Echocardiogram see dictation Carotid ultrasounds see dictation Chest x-ray see dictation Procedures: None performed during hospital stay Patient Condition at Discharge: Stable Plan - Discharge Summary New Discharge Prescriptions: New Ascorbic Acid [Vitamin C] 1,000 mg PO DAILY #20 tablet Cholecalciferol [Vitamin D3 (25 Mcg = 1000 Iu)] 25 mcg PO DAILY #20 tab Zinc Gluconate [Zinc] 50 mg PO DAILY #20 tablet Continue diphenhydrAMINE [Benadryl] 25 mg PO HS Cetirizine HCl [Zyrtec] 10 mg PO HS Acetaminophen/Diphenhydramine [Tylenol PM 500-25mg] 1 tab PO HS Multivitamins, Thera [Multivitamin (formulary)] 1 tab PO HS Aspirin EC [Ecotrin Low Dose] 81 mg PO HS Discharge Medication List Cetirizine HCl [Zyrtec] 10 mg PO HS 07/01/14 [History] diphenhydrAMINE [Benadryl] 25 mg PO HS 07/01/14 [History] Acetaminophen/Diphenhydramine [Tylenol PM 500-25mg] 1 tab PO HS 01/28/21 [History] Aspirin EC [Ecotrin Low Dose] 81 mg PO HS 01/28/21 [History] Multivitamins, Thera [Multivitamin (formulary)] 1 tab PO HS 01/28/21 [History] Ascorbic Acid [Vitamin C] 1,000 mg PO DAILY #20 tablet 01/30/21 [Rx] Cholecalciferol [Vitamin D3 (25 Mcg = 1000 Iu)] 25 mcg PO DAILY #20 tab 01/30/21 [Rx] Zinc Gluconate [Zinc] 50 mg PO DAILY #20 tablet 01/30/21 [Rx] Follow up Appointment(s)/Referral(s): Gilberto Carcamo MD [Primary Care Provider] - 1-2 days Win Main MD [STAFF PHYSICIAN] - 4 Weeks Patient Instructions/Handouts: Coronavirus Disease 2019 (COVID-19), Syncope (DC) Discharge Disposition: HOME SELF-CARE
== END 2021-01-30 15:50 | disposition home or self-care (01) ==
LOC: EC 13:53 → 6NMEDSUR 17:25
PROVIDERS: ADMIT Family Medicine; ATTEND Family Medicine
DX: U07.1 COVID-19 (principal); I95.1 Orthostatic hypotension; R79.82 Elevated C-reactive protein (CRP); J45.909 Unspecified asthma, uncomplicated; K21.9 Gastro-esophageal reflux disease without esophagitis; J38.00 Paralysis of vocal cords and larynx, unspecified; M54.9 Dorsalgia, unspecified; T78.49XA Other allergy, initial encounter; R51.9 Headache, unspecified; I08.3 Combined rheumatic disorders of mitral, aortic and tricuspid valves; Z87.01 Personal history of pneumonia (recurrent); Z79.899 Other long term (current) drug therapy; Z79.82 Long term (current) use of aspirin; Z80.3 Family history of malignant neoplasm of breast
CPT/HCPCS: 93005; 93306; 85379; 83880; 80053; 80048 ×2; 82728; 83615; 83735; 84484; 85025 ×3; 85384; 85610; 85730; 86140; 87040; 84145; 87635; 71046; 93880; G0378 ×3; J1644 ×2; Q0243; 96361; 96372; 99285

== ENCOUNTER → 2022-12-11 | Day surgery (SDC) | payer MEDICARE ==
[~2022-12-11] MED LIST: DEXAMETHASONE SOD PHOSPHATE 4 MG/ML 1 ML VIAL IV ONE; HYDROmorphone 0.5 MG/0.5 ML SYRINGE IVP PRN; LACTATED RINGERS 1,000 ML IV SCH; ONDANSETRON 4 MG/2 ML VIAL IVP ONE; PROPOFOL 10 MG/ML 20 ML VIAL IV ONE
[2022-12-11 06:46] VITALS: TEMP 97
--- NOTE | 2022-12-11 07:38 | P.GSHP ---
History of Present Illness H&P Date: 12/11/22 CHIEF COMPLAINT: Colon screen HISTORY OF PRESENT ILLNESS: The patient is a 72-year-old male who presents for colon screen. Lower endoscopy was offered for further evaluation and management. PAST MEDICAL HISTORY: Please see list. PAST SURGICAL HISTORY: Please see list. MEDICATIONS: Please see list. ALLERGIES: Please see list. SOCIAL HISTORY: No illicit drug use FAMILY HISTORY: No reports of Crohn disease or ulcerative colitis. REVIEW OF ORGAN SYSTEMS: CONSTITUTIONAL: No reports of fevers or chills. PHYSICAL EXAM: VITAL SIGNS: Stable GENERAL: Well-developed pleasant in no acute distress. HEENT: No scleral icterus. Extraocular movements grossly intact. Moist buccal mucosa. NECK: Supple without lymphadenopathy. CHEST: Unlabored respirations. Equal bilateral excursions. CARDIOVASCULAR: Regular rate and rhythm. Distal 2+ pulses. ABDOMEN: Soft, nontender, nondistended. MUSCULOSKELETAL: No clubbing, cyanosis, or edema. ASSESSMENT: 1. Colon screen. PLAN: 1. Recommend proceeding with a lower endoscopy Past Medical History Past Medical History: Asthma, GERD/Reflux, Pneumonia Additional Past Medical History / Comment(s): ENVIRONMENTAL ALLERGIES, STATES VERY SMALL THROAT-HX OF VOCAL CORD PARALYSIS., BACK PAIN. History of Any Multi-Drug Resistant Organisms: None Reported Past Surgical History: Hernia Repair, Joint Replacement, Orthopedic Surgery Additional Past Surgical History / Comment(s): HERNIA , TESTICLE LOWERED, INGUINAL HERNIA(2006), ARSENIO KNEE ARTHROSCOPY(2007), abd surgery arsenio total knee replaced Past Anesthesia/Blood Transfusion Reactions: Previous Problems w/ Anesthesia Additional Past Anesthesia/Blood Transfusion Reaction / Comment(s): HAS HICCUPS FOR A COUPLE DAYS POST-OP. STATES HE HAS A VERY SMALL THROAT AND WAS TOLD TO LET THE KNOW IF ANY TUBES PUT DOWN HIS THROAT. HX OF VOCAL CORD PARALYSIS. Smoking Status: Never smoker - Past Family History Sister(s) Family Medical History: Cancer Additional Family Medical History / Comment(s): BREAST CA Medications and Allergies Home Medications Medication Instructions Recorded Confirmed Type Cetirizine HCl [Zyrtec] 10 mg PO HS 07/01/14 12/11/22 History diphenhydrAMINE [Benadryl] 25 mg PO HS 07/01/14 12/11/22 History Acetaminophen/Diphenhydramine 1 tab PO HS 01/28/21 12/11/22 History [Tylenol PM 500-25mg] Aspirin EC [Ecotrin Low Dose] 81 mg PO HS 01/28/21 12/06/22 History Multivitamins, Thera [Multivitamin 1 tab PO HS 01/28/21 12/11/22 History (formulary)] Ascorbic Acid [Vitamin C] 1,000 mg PO DAILY #20 tablet 01/30/21 12/06/22 Rx Cholecalciferol [Vitamin D3 (25 25 mcg PO DAILY #20 tab 01/30/21 12/11/22 Rx Mcg = 1000 Iu)] Zinc Gluconate [Zinc] 50 mg PO DAILY #20 tablet 01/30/21 12/11/22 Rx Allergies Allergy/AdvReac Type Severity Reaction Status Date / Time No Known Allergies Allergy Verified 12/11/22 06:48 Surgical - Exam Vital Signs Temp Pulse Resp BP Pulse Ox 97.0 F L 50 L 16 157/84 98 12/11/22 06:45 12/11/22 06:45 12/11/22 06:45 12/11/22 06:45 12/11/22 06:45
[2022-12-11 08:27] VITALS: BP 142/85; PULSE 48; RESP 16
--- NOTE | 2022-12-11 08:50 | P.PCN ---
Date of Procedure: 12/11/22 Description of Procedure: PREOPERATIVE DIAGNOSIS: Colonoscopy screening. Personal history colon polyps POSTOPERATIVE DIAGNOSIS: Sigmoid volvulus Sigmoid diverticulosis OPERATION: Colonoscopy to the transverse colon/hepatic flexure SURGEON: Lisa Montejo MD. ANESTHESIA: MAC. INDICATIONS: The patient is a 72-year-old male who presents for colonoscopy screening. Last colonoscopy was more than 5 years ago. Benefits and risks were described and informed consent was obtained. DESCRIPTION OF PROCEDURE: The patient had undergone Sutab prep. She had been brought into the operating room and laid in the left lateral decubitus position. After adequate intravenous sedation, the rectum was examined with 2% lidocaine jelly. No external hemorrhoids were encountered. The rectal tone was loose. No lesions were palpated in the rectal vault. An Olympus colonoscope was advanced along the rectum to a very tortuous sigmoid colon. The scope was then exchanged for a pediatric colonoscope. Despite multiple maneuvers, the sigmoid colon had severe tortuosity preventing further advancement of scope. The scope was passed to the transverse colon/hepatic flexure. No evidence of polyps were identified. As the patient posed high risk for perforation with persistence of the procedure, the procedure was discontinued. The colon was desufflated. The patient had tolerated the procedure well. Withdrawal time was over 6 minutes. FINDINGS: [place] preparation quality scale 2 (1-5) Tortuous sigmoid colon with stricture preventing further advancement of the scope beyond transverse colon/hepatic flexure. No external prolapsed hemorrhoids. Scope advanced to transverse colon/hepatic flexure for sigmoid volvulus No arteriovenous malformations. No focal colitis. Scope nondiagnostic beyond hepatic flexure RECOMMENDATIONS: Completion of colonoscopy evaluation with barium enema. Repeat colonoscopy 3 years, 2025 Plan - Discharge Summary Discharge Rx Participant: No New Discharge Prescriptions: Continue diphenhydrAMINE [Benadryl] 25 mg PO HS Cetirizine HCl [Zyrtec] 10 mg PO HS Acetaminophen/Diphenhydramine [Tylenol PM 500-25mg] 1 tab PO HS Ascorbic Acid [Vitamin C] 1,000 mg PO DAILY #20 tablet Multivitamins, Thera [Multivitamin (formulary)] 1 tab PO HS Aspirin EC [Ecotrin Low Dose] 81 mg PO HS Cholecalciferol [Vitamin D3 (25 Mcg = 1000 Iu)] 25 mcg PO DAILY #20 tab Zinc Gluconate [Zinc] 50 mg PO DAILY #20 tablet Discharge Medication List Cetirizine HCl [Zyrtec] 10 mg PO HS 07/01/14 [History] diphenhydrAMINE [Benadryl] 25 mg PO HS 07/01/14 [History] Acetaminophen/Diphenhydramine [Tylenol PM 500-25mg] 1 tab PO HS 01/28/21 [History] Aspirin EC [Ecotrin Low Dose] 81 mg PO HS 01/28/21 [History] Multivitamins, Thera [Multivitamin (formulary)] 1 tab PO HS 01/28/21 [History] Ascorbic Acid [Vitamin C] 1,000 mg PO DAILY #20 tablet 01/30/21 [Rx] Cholecalciferol [Vitamin D3 (25 Mcg = 1000 Iu)] 25 mcg PO DAILY #20 tab 01/30/21 [Rx] Zinc Gluconate [Zinc] 50 mg PO DAILY #20 tablet 01/30/21 [Rx] Follow up Appointment(s)/Referral(s): Lisa Montejo MD [STAFF PHYSICIAN] - 12/31/22 11:00 am Patient Instructions/Handouts: Diverticulosis Diet (GEN), Diverticulosis (DC) Activity/Diet/Wound Care/Special Instructions: Repeat colonoscopy 3 years, 2025 Discharge Disposition: HOME SELF-CARE
--- NOTE | 2022-12-12 11:12 | XR ---
EXAMINATION TYPE: XR KUB DATE OF EXAM: 12/11/2022 COMPARISON: NONE HISTORY: INCOMPLETE COLONOSCOPY TECHNIQUE: Single supine KUB image of the abdomen is obtained FINDINGS: Large amount of air within the small and large bowel. Barium enema will be rescheduled for 12/12/2022. IMPRESSION: 1. As above
== END | disposition home or self-care (01) ==
LOC: ORWHC2ENDO 06:20
PROVIDERS: ATTEND Surgery Plastic and Reconstructive Surgery
DX: Z12.11 Encounter for screening for malignant neoplasm of colon (principal); K56.2 Volvulus; K57.30 Diverticulosis of large intestine without perforation or abscess without bleeding; Z86.010 Personal history of colon polyps; J45.909 Unspecified asthma, uncomplicated; K21.9 Gastro-esophageal reflux disease without esophagitis; J18.9 Pneumonia, unspecified organism; Z98.890 Other specified postprocedural states; Z80.3 Family history of malignant neoplasm of breast; Z79.82 Long term (current) use of aspirin; Z79.891 Long term (current) use of opiate analgesic; Z79.899 Other long term (current) drug therapy; Z79.52 Long term (current) use of systemic steroids
CPT/HCPCS: 74018; J2704; G0121

== ENCOUNTER → 2022-12-12 | Outpatient (CLI) | payer MEDICARE ==
--- NOTE | 2022-12-12 11:39 | FL ---
EXAMINATION TYPE: FL barium enema DATE OF EXAM: 12/12/2022 COMPARISON: KUB radiograph 12/11/2022 HISTORY: Incomplete colonoscopy TECHNIQUE: A single contrast barium enema study is performed. A total of 36 seconds of fluoroscopic time was utilized during procedure and 37 images obtained. Total dose area product (DAP) in uGy*m?, mGy*cm? (or similar): Unable to obtain due to how old the machine is. 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 Multiple pelvic phlebolith. Degenerative changes of the lumbar spine. Limited examination due to contrast leakage from the rectum. No evidence of any mass or polyp, obstru cting or constricting lesion throughout the colon. Multiple diverticula of the sigmoid colon identifi ed. Contrast extends to the cecum. IMPRESSION: 1. No evidence of mass or obstructing/constricting lesion throughout the colon. 2. Colonic diverticulosis of the sigmoid colon.
== END | disposition home or self-care (01) ==
LOC: RADFLMAIN 09:34
PROVIDERS: ATTEND Surgery Plastic and Reconstructive Surgery
DX: K57.30 Diverticulosis of large intestine without perforation or abscess without bleeding (principal)
CPT/HCPCS: 74270

== ENCOUNTER 2022-12-25 14:53 | Emergency (ER) | payer MEDICARE ==
--- NOTE | 2022-12-25 15:00 | ED ---
General Adult HPI - General Source: patient, RN notes reviewed Mode of arrival: ambulatory Limitations: no limitations <Brent Riddle - Last Filed: 12/25/22 14:59> - General Source: patient, RN notes reviewed Mode of arrival: ambulatory Limitations: no limitations <Rachell Garber - Last Filed: 12/26/22 00:17> - General Stated complaint: L Foot Broken Time Seen by Provider: 12/25/22 14:59 - History of Present Illness Initial comments: 72-year-old male presents emergency Department with chief complaint left foot pain. He states he stepped on a rock causing twist his foot. Patient complains of left foot pain no other complaints. (Brent Riddle) 72-year-old male presents emergency department chief complaint of left foot pain. He states that last night he was walking when he stepped on a rock c ausing his foot to twist. He complains of left lateral foot pain and bruising. He states that it is not painful unless he is walking on it. He states that he has not been taking anything for pain. Denies numbness, tingling. (Rachell Garber) - Related Data Home Medications Medication Instructions Recorded Confirmed Cetirizine HCl [Zyrtec] 10 mg PO HS 07/01/14 12/11/22 diphenhydrAMINE [Benadryl] 25 mg PO HS 07/01/14 12/11/22 Acetaminophen/Diphenhydramine 1 tab PO HS 01/28/21 12/11/22 [Tylenol PM 500-25mg] Aspirin EC [Ecotrin Low Dose] 81 mg PO HS 01/28/21 12/06/22 Multivitamins, Thera [Multivitamin 1 tab PO HS 01/28/21 12/11/22 (formulary)] Previous Rx's Medication Instructions Recorded Ascorbic Acid [Vitamin C] 1,000 mg PO DAILY #20 tablet 01/30/21 Cholecalciferol [Vitamin D3 (25 25 mcg PO DAILY #20 tab 01/30/21 Mcg = 1000 Iu)] Zinc Gluconate [Zinc] 50 mg PO DAILY #20 tablet 01/30/21 Allergies Allergy/AdvReac Type Severity Reaction Status Date / Time No Known Allergies Allergy Verified 12/25/22 15:49 Review of Systems ROS Other: All systems not noted in ROS Statement are negative. <Brent Riddle - Last Filed: 12/25/22 14:59> ROS Other: All systems not noted in ROS Statement are negative. <Rachell Garber - Last Filed: 12/26/22 00:17> ROS Statement: Those systems with pertinent positive or pertinent negative responses have been documented in the HPI. Past Medical History Past Medical History: Asthma, GERD/Reflux, Pneumonia Additional Past Medical History / Comment(s): ENVIRONMENTAL ALLERGIES, STATES VERY SMALL THROAT-HX OF VOCAL CORD PARALYSIS., BACK PAIN. History of Any Multi-Drug Resistant Organisms: None Reported Past Surgical History: Hernia Repair, Joint Replacement, Orthopedic Surgery Additional Past Surgical History / Comment(s): HERNIA , TESTICLE LOWERED, INGUINAL HERNIA(2006), ARSENIO KNEE ARTHROSCOPY(2007), abd surgery arsenio total knee replaced Past Anesthesia/Blood Transfusion Reactions: Previous Problems w/ Anesthesia Additional Past Anesthesia/Blood Transfusion Reaction / Comment(s): HAS HICCUPS FOR A COUPLE DAYS POST-OP. STATES HE HAS A VERY SMALL THROAT AND WAS TOLD TO LET THE [facility]RSara KNOW IF ANY TUBES PUT DOWN HIS THROAT. HX OF VOCAL CORD PARALYSIS. Smoking Status: Never smoker - Past Family History Sister(s) Family Medical History: Cancer Additional Family Medical History / Comment(s): BREAST CA <JanessaBrent - Last Filed: 12/25/22 14:59> General Exam <PilyconnerBrent Damon - Last Filed: 12/25/22 14:59> Limitations: no limitations General appearance: alert, in no apparent distress Head exam: Present: atraumatic, normocephalic, normal inspection Eye exam: Present: normal appearance, PERRL, EOMI. Absent: scleral icterus, conjunctival injection, periorbital swelling ENT exam: Present: normal exam, mucous membranes moist Neck exam: Present: normal inspection. Absent: tenderness, meningismus, lymphadenopathy Respiratory exam: Present: normal lung sounds bilaterally. Absent: respiratory distress, wheezes, rales, rhonchi, stridor Cardiovascular Exam: Present: regular rate, normal rhythm, normal heart sounds. Absent: systolic murmur, diastolic murmur, rubs, gallop, clicks Extremities exam: Present: full ROM, tenderness (Left lateral midfoot), normal capillary refill, other (DP and PT pulses 2+, NVI, ecchymosis to the lateral and distal foot) Back exam: Present: normal inspection Neurological exam: Present: alert, oriented X3 Psychiatric exam: Present: normal affect, normal mood Skin exam: Present: warm, dry, intact, normal color. Absent: rash <Rachell Garber - Last Filed: 12/26/22 00:17> - General Exam Comments Initial Comments: Visual Physical Exam Vital signs reviewed General: Well-appearing, nontoxic, no acute distress. Head: Normocephalic, atraumatic Eyes: PERRLA, EOMI ENT: Airway patent Chest: Nonlabored breathing Skin: No visual rash, normal skin tone Neuro: Alert and oriented 3 Musculoskeletal: No gross abnormalities (Brent Riddle) Course Vital Signs 12/25/22 15:47 Temperature 98.3 F Pulse Rate 64 Respiratory 20 Rate Blood Pressure 129/77 O2 Sat by Pulse 98 Oximetry Medical Decision Making <Brent Riddle - Last Filed: 12/25/22 14:59> <Rachell Garber - Last Filed: 12/26/22 00:17> - Medical Decision Making I performed the quick note portion of this chart signed Brent Riddle PA-C (Brent Riddle) Was pt. sent in by a medical professional or institution (BRENDA Stein, ICHTHYOLOGIST, urgent care, hospital, or penitentiary...) When possible be specific @ -No Did you speak to anyone other than the patient for history (EMS, parent, family, police, friend...)? What history was obtained from this source @ -No Did you review nursing and triage notes (agree or disagree)? Why? @ -I reviewed and agree with nursing and triage notes Were old charts reviewed (outside hosp., previous admission, EMS record, old EKG, old radiological studies, urgent care reports/EKG's, penitentiary records)? Report findings @ -No old charts were reviewed Differential Diagnosis (chest pain, altered mental status, abdominal pain women, abdominal pain men, vaginal bleeding, weakness, fever, dyspnea, syncope, headache, dizziness, GI bleed, back pain, seizure, CVA, palpatations, mental health, musculoskeletal)? @ -Differential Musculoskeletal Muscular strain, contusion, ligament sprain, fracture, arthritis, septic arthritis, bursitis, cellulitis, muscle spasm, nerve compression, DVT, arterial occlusion, herpes zoster, electrolyte abnormality, tumor.... This is not meant to be in all inclusive list EKG interpreted by me (3pts min.). @ -None X-rays interpreted by me (1pt min.). @ -X-ray left foot shows fifth metatarsal oblique fracture distal diaphyseal CT interpreted by me (1pt min.). @ -None done U/S interpreted by me (1pt. min.). @ -None done What testing was considered but not performed or refused? (CT, X-rays, U/S, labs)? Why? @ -None What meds were considered but not given or refused? Why? @ -None Did you discuss the management of the patient with other professionals (professionals i.e. DrSara, PA, ICHTHYOLOGIST, lab, RT, psych nurse, social services designee, soap chipper, teacher, ship's officer, piano case and bench assembler)? Give summary @ -No Was smoking cessation discussed for >3mins.? @ -No Was critical care preformed (if so, how long)? @ -No Were there social determinants of health that impacted care today? How? (Homelessness, low income, unemployed, alcoholism, drug addiction, transportation, low edu. Level, literacy, decrease access to med. care, skilled nursing, rehab)? @ -No Was there de-escalation of care discussed even if they declined (Discuss DNR or withdrawal of care, Hospice)? DNR status @ -No What co-morbidities impacted this encounter? (DM, HTN, Smoking, COPD, CAD, Cancer, CVA, ARF, Chemo, Hep., AIDS, mental health diagnosis, sleep apnea, morbid obesity)? @ -None Was patient admitted / discharged? Hospital course, mention meds given and route, prescriptions, significant lab abnormalities, going to OR and other pertinent info. @ -Discharge. Patient presented to emergency department chief complaint of left foot pain that started yesterday after he was walking and stepped on a rock causing his foot to twist. X-ray obtained shows distal diaphyseal fifth metatarsal oblique fracture. Patient was placed in a short-leg splint and given crutches with orthopedic follow-up on outpatient basis. Patient stable at time of discharge. Case discussed my attending, Dr. Lee. Undiagnosed new problem with uncertain prognosis? @ -No Drug Therapy requiring intensive monitoring for toxicity (Heparin, Nitro, Ins ulin, Cardizem)? @ -No Were any procedures done? @ -No Diagnosis/symptom? @ -Fifth metatarsal fracture Acute, or Chronic, or Acute on Chronic? @ -Acute Uncomplicated (without systemic symptoms) or Complicated (systemic symptoms)? @ -uncomplicated Side effects of treatment? @ -No Exacerbation, Progression, or Severe Exacerbation? @ -No Poses a threat to life or bodily function? How? (Chest pain, [place], [place], pneumonia, PE, COPD, DKA, ARF, appy, cholecystitis, CVA, Diverticulitis, Homicidal, Suicidal, threat to staff... and all critical care pts) @ -No (Rachell Garber) Disposition <Brent Riddle - Last Filed: 12/25/22 14:59> Is patient prescribed a controlled substance at d/c from ED?: No Time of Disposition: 16:39 <Rachell Garber - Last Filed: 12/26/22 00:17> Clinical Impression: Fracture of fifth metatarsal bone of left foot Disposition: HOME SELF-CARE Condition: Stable Instructions (If sedation given, give patient instructions): Foot Fracture in Adults (ED) Additional Instructions: Follow up with orthopedics in the next 1-2 days. Take Tylenol and Motrin as n eeded for pain. Return to the emergency department for new or worsening symptoms. Referrals: Pete Thurston MD [STAFF PHYSICIAN] - 1-2 days Surya Smith MD [STAFF PHYSICIAN] - 1-2 days
[2022-12-25 15:49] VITALS: BP 129/77; PULSE 64; RESP 20; TEMP 98.3
--- NOTE | 2022-12-25 15:50 | XR ---
EXAMINATION TYPE: XR foot complete LT DATE OF EXAM: 12/25/2022 COMPARISON: None HISTORY: Pain TECHNIQUE: 3 view left foot FINDINGS: There is a long oblique fracture of the mid to distal diaphyseal fifth metatarsal. No additional fractures are evident. Plantar calcaneal heel spur is present. There are advanced degen erative changes and spurring at the first metatarsophalangeal joint space. Alignment appears normal. IMPRESSION: 1. Oblique fracture distal diaphyseal fifth metatarsal. 2. Advanced degenerative joint changes first metatarsophalangeal joint space.
[2022-12-25] MEDS ORDERED: traMADol 50 MG STARTER PACK 3 TAB BTL PO STA (16:33)
== END 2022-12-25 18:11 | disposition home or self-care (01) ==
LOC: EC 14:53
DX: S92.352A Displaced fracture of fifth metatarsal bone, left foot, initial encounter for closed fracture (principal); J45.909 Unspecified asthma, uncomplicated; Z79.82 Long term (current) use of aspirin; Z79.899 Other long term (current) drug therapy; X50.1XXA Overexertion from prolonged static or awkward postures, initial encounter
CPT/HCPCS: 99283

== ENCOUNTER → 2023-03-21 | Outpatient (CLI) | payer MEDICARE ==
[2023-03-21 19:07] LABS: Basophils # (A) 0.04 X 10*3/uL (0.00-0.10); Basophils % (A) 0.7 %; Eosinophils # (A) 0.15 X 10*3/uL (0.04-0.35); Eosinophils % (A) 2.6 %; HCT 43.3 % (39.6-50.0); HGB 14.9 g/dL (13.0-17.0); Lymphocytes # (A) 1.33 X 10*3/uL (0.90-5.00); Lymphocytes % (A) 22.9 %; MCH 31.4 pg (27.0-32.0); MCHC 34.4 g/dL (32.0-37.0); MCV 91.4 FL (80.0-97.0); Mean Platelet Volume 10.2 FL (9.5-12.2); Monocytes # (A) 0.45 X 10*3/uL (0.20-1.00); Monocytes % (A) 7.8 %; NRBC Per 100 WBC 0 X 10*3/uL (0.00-0.01); Neutrophils % (A) 65.5 %; Platelet Count 163 X 10*3/uL (140-440); RBC 4.74 X 10*6/uL (4.40-5.60)
[2023-03-21 19:16] LABS: ALT 49 U/L (10-49); AST 36 U/L (14-35); Albumin 4.8 g/dL (3.8-4.9); Albumin/Globulin Ratio 2.18 Ratio (1.60-3.17); Alkaline Phosphatase 81 U/L (41-126); BUN/Creat Ratio 24.07 Ratio (12.00-20.00); Blood Urea Nitrogen 33.7 mg/dL (9.0-27.0); Calcium 10.1 mg/dL (8.7-10.3); Carbon Dioxide 24.7 mmol/L (21.6-31.8); Chloride 103 mmol/L (96-109); Globulin 2.2 g/dL (1.6-3.3); Glucose 94 mg/dL (70-110); Potassium 5.6 mmol/L (3.5-5.5); Sodium 140 mmol/L (135-145); Total Bilirubin 0.7 mg/dL (0.3-1.2)
== END | disposition home or self-care (01) ==
LOC: LABWHC1 13:02
PROVIDERS: ATTEND Surgery Plastic and Reconstructive Surgery
DX: Z00.00 Encounter for general adult medical examination without abnormal findings (principal); K57.92 Diverticulitis of intestine, part unspecified, without perforation or abscess without bleeding
CPT/HCPCS: 36415; 80053; 85025; 86850; 86900; 86901

== ENCOUNTER 2023-03-26 09:11 | Inpatient (IN) | payer MEDICARE ==
[2023-03-21 10:22] VITALS: BMI 33.9
--- NOTE | 2023-03-26 04:45 | P.GSHP ---
History of Present Illness H&P Date: 03/26/23 CHIEF COMPLAINT: Sigmoid diverticulosis possible obstruction HISTORY OF PRESENT ILLNESS: The patient is a 72-year-old male who presents with change in bowel habits including intermittent large bowel obstruction for over 6 months. He reports intermittent gas bloat. He had attempted prior colonoscopy unsuccessful. He presents for surgical options, sigmoid colectomy. PAST MEDICAL HISTORY: Please see list. PAST SURGICAL HISTORY: Please see list. MEDICATIONS: Please see list. ALLERGIES: Please see list. SOCIAL HISTORY: No illicit drug use FAMILY HISTORY: No reports of Crohn disease or ulcerative colitis. REVIEW OF ORGAN SYSTEMS: CONSTITUTIONAL: Denies any fever or chills. HEENT: Denies any trouble with vision or nosebleeds. No difficulty swallowing. LYMPHATIC: The patient denies any lumps and bumps around the neck. ENDOCRINE: Denies any thyroid disorders. Has blood sugar glucose intolerance. RESPIRATORY: Denies pneumonia. Denies any troubles with breathing or dyspnea on exertion. CARDIOVASCULAR: Denies any chest pain, palpitations, or recent heart attacks. Has hypertension. GASTROINTESTINAL: Has chronic diverticulitis. GENITOURINARY: Has increased urinary frequency. MUSCULOSKELETAL: Has back pain, stiffness, joint arthritis. NEUROLOGIC: Denies any numbness or tingling along the distal extremities. No seizure disorders or headaches. PSYCHIATRIC: Denies depression or suidical ideation. Has dementia HEMATOLOGIC: Denies any abnormal bleeding or bruising. PHYSICAL EXAM: VITAL SIGNS: Stable GENERAL: Well-developed pleasant in no acute distress. HEENT: No scleral icterus. Extraocular movements grossly intact. Moist buccal mucosa. NECK: Supple without lymphadenopathy. CHEST: Unlabored respirations. Equal bilateral excursions. CARDIOVASCULAR: Regular rate and rhythm. Distal 2+ pulses. ABDOMEN: Soft, nontender, nondistended. MUSCULOSKELETAL: No clubbing, cyanosis, or edema. NERUO: Cranial nerves 2-12 grossly intact. PSYCH: Alert and oriented to person place and time. ASSESSMENT: 1. Sigmoid diverticulosis with intermittent bowel obstruction PLAN: 1. Benefits and risks of surgical robotic sigmoid resection was reviewed in detail. Robotic-assisted approach was also described. 2. Enhanced colon recovery program. 3. DVT prophylaxis. 4. Antibiotic prophylaxis. 5. Inpatient hospitalization greater than 2 nights. 6. Recommend colonoscopy for tattoing, extent of obstruction and evaluation of neoplasm. Past Medical History Past Medical History: Asthma, GERD/Reflux, Hypertension, Memory Impairment, Osteoarthritis (OA), Pneumonia Additional Past Medical History / Comment(s): Environmental allergies., Hx vocal cord paralysis, states very small throat ., repair hiatal hernia, hx of hospitalization for Covid., states "twisted and drooping bowel". History of Any Multi-Drug Resistant Organisms: None Reported Past Surgical History: Hernia Repair, Joint Replacement, Orthopedic Surgery Additional Past Surgical History / Comment(s): HERNIA , TESTICLE LOWERED, INGUINAL HERNIA(2006), ARSENIO KNEE ARTHROSCOPY(2007), hiatal hernia surgery ., arsenio total knee replaced Past Anesthesia/Blood Transfusion Reactions: Previous Problems w/ Anesthesia Additional Past Anesthesia/Blood Transfusion Reaction / Comment(s): HICCUPS FOR A COUPLE DAYS POST-OP. STATES HE HAS A VERY SMALL THROAT AND WAS TOLD TO LET THE [facility] KNOW IF ANY TUBES PUT DOWN HIS THROAT. HX OF VOCAL CORD PARALYSIS. Past Psychological History: No Psychological Hx Reported Smoking Status: Former smoker Past Alcohol Use History: None Reported Additional Past Alcohol Use History / Comment(s): smoked as teenager. Past Drug Use History: None Reported - Past Family History Sister(s) Family Medical History: Cancer Additional Family Medical History / Comment(s): BREAST CA Medications and Allergies Home Medications Medication Instructions Recorded Confirmed Type Cetirizine HCl [Zyrtec] 10 mg PO HS 07/01/14 03/21/23 History diphenhydrAMINE [Benadryl] 25 mg PO HS 07/01/14 03/21/23 History Acetaminophen/Diphenhydramine 1 tab PO HS 01/28/21 03/21/23 History [Tylenol PM 500-25mg] Aspirin EC [Ecotrin Low Dose] 81 mg PO HS 01/28/21 03/21/23 History Cholecalciferol [Vitamin D3 (25 25 mcg PO DAILY #20 tab 01/30/21 03/21/23 Rx Mcg = 1000 Iu)] Cyanocobalamin (Vitamin B-12) 5,000 mcg PO DAILY 03/21/23 03/21/23 History [Vitamin B-12] Donepezil [Aricept] 5 mg PO HS 03/21/23 03/21/23 History Ibuprofen/Diphenhydramine HCl 1 each PO HS 03/21/23 03/21/23 History [Advil Pm Liqui-Gels] Metoprolol Succinate (ER) [Toprol 25 mg PO HS 03/21/23 03/21/23 History Xl] Allergies Allergy/AdvReac Type Severity Reaction Status Date / Time No Known Allergies Allergy Verified 03/21/23 09:34
[~2023-03-26 09:11] MED LIST changes: +Antibiotics per Pharmacy 1 EACH MISC MISCELLANE PRN; -DEXAMETHASONE SOD PHOSPHATE 4 MG/ML 1 ML VIAL IV ONE; +HEPARIN SODIUM,PORCINE/PF 5,000 UNIT/0.5 ML SYRINGE SQ PRN; -HYDROmorphone 0.5 MG/0.5 ML SYRINGE IVP PRN; -LACTATED RINGERS 1,000 ML IV SCH; +LIDOCAINE 1% (10MG/ML) FOR IV START INTRADERMA PRN; -ONDANSETRON 4 MG/2 ML VIAL IVP ONE; +PEG 3350 (420 GM/BTL) + LYTES 4,000 ML BOTTLE PO ONE; -PROPOFOL 10 MG/ML 20 ML VIAL IV ONE; +metroNIDAZOLE-NS PMX 500 MG in SALINE 1 100ML.BAG IVPB ONE
[2023-03-26 10:05] LABS: Basophils % (A) 0 %; Eosinophils # (A) 0.1 k/uL (0-0.7); Eosinophils % (A) 2 %; HCT 45.8 % (39.0-53.0); HGB 16.2 gm/dL (13.0-17.5); Lymphocytes # (A) 1.4 k/uL (1.0-4.8); Lymphocytes % (A) 17 %; MCH 31.8 pg (25.0-35.0); MCHC 35.3 g/dL (31.0-37.0); MCV 90.2 fL (80.0-100.0); Mean Platelet Volume 8.8; Monocytes # (A) 0.4 k/uL (0-1.0); Monocytes % (A) 5 %; Neutrophils # (A) 6.3 k/uL (1.3-7.7); Neutrophils % (A) 75 %; Platelet Count 194 k/uL (150-450); RBC 5.08 m/uL (4.30-5.90); RDW 12.9 % (11.5-15.5); WBC 8.4 k/uL (3.8-10.6)
[2023-03-26 10:26] LABS: ALT 49 U/L (4-49); African American GFR (CKD) 50 (>60 ml/min/1.73 sqM); Albumin 5.1 g/dL (3.5-5.0); Anion Gap 18 mmol/L; Blood Urea Nitrogen 30 mg/dL (9-20); Calcium 9.7 mg/dL (8.4-10.2); Carbon Dioxide 19 mmol/L (22-30); Chloride 104 mmol/L (98-107); Glucose 97 mg/dL (74-99); Non-African American GFR(CKD) 43 (>60 ml/min/1.73 sqM); Sodium 141 mmol/L (137-145); Total Bilirubin 1.1 mg/dL (0.2-1.3); Total Protein 8.1 g/dL (6.3-8.2)
[2023-03-26 10:39] LABS: AST 47 U/L (17-59); Alkaline Phosphatase 71 U/L (38-126); Potassium 4.8 mmol/L (3.5-5.1)
[2023-03-26] MEDS ORDERED: PROPOFOL 10 MG/ML 20 ML VIAL IV ONE (10:48)
[2023-03-26] MEDS ORDERED: SODIUM CHLORIDE 0.9% 1,000 ML IV ONE (11:22)
--- NOTE | 2023-03-26 11:25 | P.PCN ---
Date of Procedure: 03/26/23 Description of Procedure: PREOPERATIVE DIAGNOSIS: Diverticulitis POSTOPERATIVE DIAGNOSIS: Pandiverticulosis, severe Sigmoid diverticulosis Cecal adenoma OPERATION: Colonoscopy to the ileocecal valve and appendiceal orifice, cecum Colonoscopy with hot snare polypectomy SURGEON: Lisa Montejo MD. ANESTHESIA: MAC. INDICATIONS: The patient is an 72-year-old male who presents with change in bowel habits and diverticulosis with intermittent diverticulitis. He had incomplete colonoscopy. He presents for marking of the colon including assessment of neoplasms. Benefits and risks were described and informed consent was obtained. DESCRIPTION OF PROCEDURE: The patient had undergone Sutab prep. The patient had been brought into the operating room and laid in the left lateral decubitus position. After adequate intravenous sedation, the rectum was examined with 2% lidocaine jelly. The prost ate was unremarkable. External hemorrhoids were encountered. The rectal tone was within normal limits. No lesions were palpated in the rectal vault. An Olympus colonoscope was advanced until the cecum, ileocecal valve and appendiceal orifice were clearly viewed. The prep was excellent. Sigmoid diverticulosis was encountered. Severe baltazar diverticulosis including of the ascending colon identified. Colonic polyps were found and removed. No evidence of focal colitis was found. Retroflexion of the scope demonstrated grade 2 internal hemorrhoids without active bleeding or inflammation. The colon was desufflated. The patient had tolerated the procedure well. Withdrawal time was over 6 minutes. FINDINGS: Aronchick preparation quality scale 1 (1-5) Internal hemorrhoids, grade 2 External hemorrhoids, grade 2. No arteriovenous malformations. Sigmoid diverticulosis Severe pandiverticulosis Removal of 1 polyps: - Snare polypectomy at cecum, 8 mm flat villous adenoma No focal colitis. RECOMMENDATIONS: Repeat colonoscopy in 3 years, 2025
[2023-03-26] MEDS ORDERED: SODIUM CHLORIDE 0.9% 2,000 ML IV ONE (11:39)
[2023-03-26] MEDS ORDERED: diphenhydrAMINE 25 MG CAP PO PRN (12:10)
[2023-03-26] MEDS: metroNIDAZOLE 500 MG TAB PO SCH ×3 (12:59→22:30)
[2023-03-26] MEDS: NEOMYCIN 500 MG TAB PO SCH ×3 (13:00→22:30)
[2023-03-26] MEDS: D5-0.45% NACL WITH KCL 20MEQ/L 1,000 ML IV SCH ×2 (15:27→16:00)
[2023-03-26] MEDS: TAMSULOSIN 0.4 MG CAP.ER.24H PO SCH (17:48)
[2023-03-26] MEDS ORDERED: ACETAMINOPHEN TAB 500 MG TAB PO PRN (21:00)
[2023-03-26] MEDS: ASPIRIN 81 MG PO SCH (22:29)
[2023-03-26] MEDS: DONEPEZIL 5 MG TAB PO SCH (22:29)
[2023-03-26] MEDS: METOPROLOL SUCCINATE (ER) 25 MG TAB.ER.24H PO SCH (22:29)
[2023-03-26] MEDS: diphenhydrAMINE 25 MG CAP PO SCH (22:29)
[2023-03-26] MEDS: LORATADINE 10 MG TAB PO SCH (22:29)
[2023-03-27] MEDS: D5-0.45% NACL WITH KCL 20MEQ/L 1,000 ML IV SCH ×3 (02:32→22:40)
[2023-03-27] MEDS ORDERED: ACETAMINOPHEN TAB 500 MG TAB PO PRN (07:00)
[2023-03-27] MEDS ORDERED: ALVIMOPAN 12 MG CAPSULE PO PRN (07:00)
[2023-03-27] MEDS ORDERED: MELOXICAM 7.5 MG TAB PO PRN (07:00)
[2023-03-27] MEDS ORDERED: metroNIDAZOLE-NS PMX 500 MG in SALINE 1 100ML.BAG IVPB ONE (07:00)
[2023-03-27 08:27] LABS: Basophils % (A) 0 %; Eosinophils # (A) 0.2 k/uL (0-0.7); Eosinophils % (A) 3 %; HCT 36.2 % (39.0-53.0); Lymphocytes % (A) 21 %; MCHC 36.1 g/dL (31.0-37.0); MCV 91.4 fL (80.0-100.0); Mean Platelet Volume 7.4; Monocytes # (A) 0.4 k/uL (0-1.0); Monocytes % (A) 8 %; Neutrophils # (A) 3.1 k/uL (1.3-7.7); Neutrophils % (A) 65 %; Platelet Count 146 k/uL (150-450); RBC 3.96 m/uL (4.30-5.90); RDW 12.9 % (11.5-15.5); WBC 4.9 k/uL (3.8-10.6)
[2023-03-27 08:30] LABS: HGB 13.1 gm/dL (13.0-17.5)
[2023-03-27 08:36] LABS: ALT 33 U/L (4-49); AST 31 U/L (17-59); African American GFR (CKD) 72 (>60 ml/min/1.73 sqM); Albumin 3.7 g/dL (3.5-5.0); Albumin/Globulin Ratio 1.6; Alkaline Phosphatase 61 U/L (38-126); Anion Gap 13 mmol/L; Blood Urea Nitrogen 17 mg/dL (9-20); Calcium 8.3 mg/dL (8.4-10.2); Carbon Dioxide 18 mmol/L (22-30); Chloride 108 mmol/L (98-107); Globulin 2.3 g/dL; Glucose 117 mg/dL (74-99); Non-African American GFR(CKD) 63 (>60 ml/min/1.73 sqM); Potassium 3.9 mmol/L (3.5-5.1); Sodium 139 mmol/L (137-145); Total Bilirubin 0.5 mg/dL (0.2-1.3)
[2023-03-27] MEDS: LACTATED RINGERS 1,000 ML IV SCH ×3 (10:20→18:00)
[2023-03-27] MEDS ORDERED: ONDANSETRON 4 MG/2 ML VIAL IVP ONE (11:08)
[2023-03-27] MEDS ORDERED: MIDAZOLAM 2 MG/2 ML VIAL IVP ONE (11:38)
[2023-03-27] MEDS ORDERED: fentaNYL (PF) 50 MCG/ML 2 ML AMP IVP ONE (11:38)
--- NOTE | 2023-03-27 12:15 | P.ANPRN ---
Procedure Note - Anesthesia - Nerve Block Performed Bilateral Erector Spinae Single Time Out Performed: Yes (1137) Date of Procedure: 03/27/23 Procedure Start Time: 11:38 Procedure Stop Time: 11:42 Location of Patient: PreOp Indication: Acute Post-Operative Pain, Requested by Surgeon Specifically requested for management of pain by : Lisa Montejo Sedation Type: Sedate with meaningful contact maintained Preparation: Sterile Prep Position: Sitting Catheter: None Needle Types: Pajunk Needle Gauge: 21 Ultrasound used to visualize needle placement: Yes Ultrasound used to observe medication spread: Yes Injectate: 0.5% Ropivacaine (see comment for volume) (15cc + 10cc nacl pf each side) Blood Aspirated: No Pain Paresthesia on Injection Noted: No Resistance on Injection: Normal Image Stored and Saved: Yes Events: Uneventful and Well Tolerated
[2023-03-27] MEDS ORDERED: NEOSTIGMINE 1 MG/ML 10 ML VIAL ONE (12:44)
[2023-03-27] MEDS ORDERED: GLYCOPYRROLATE 0.2 MG/ML 2 ML VIAL ONE (12:44)
[2023-03-27] MEDS ORDERED: LIDOCAINE 1% INJ 10MG/ML (20 ML MDV) ONE (12:44)
[2023-03-27] MEDS ORDERED: ROCURONIUM 10 MG/ML (5 ML VIAL) IV ONE (12:44)
[2023-03-27] MEDS ORDERED: PROPOFOL 10 MG/ML 20 ML VIAL IV ONE (12:44)
[2023-03-27] MEDS ORDERED: SUCCINYLCHOLINE CHLORIDE 200 MG/10 ML VIAL IV ONE (12:44)
[2023-03-27] MEDS ORDERED: ePHEDrine 50 MG/ML 1 ML VIAL ONE (12:44)
[2023-03-27] MEDS ORDERED: WATER FOR INJECTION, STERILE 10 ML VIAL IV ONE (12:44)
[2023-03-27] MEDS ORDERED: PHENYLEPHRINE-0.9% NACL SYG 1,000 MCG/10 ML SYRINGE ONE (12:44)
[2023-03-27] MEDS ORDERED: SODIUM CHLORIDE 0.9% 50 ML with ceFAZolin 2,000 MG IV ONE ×2 (13:05)
[2023-03-27] MEDS ORDERED: LIDOCAINE 1%-EPI 1:100,000 50 ML VIAL SQ ONE (13:44)
[2023-03-27] MEDS ORDERED: LACTATED RINGERS 1,000 ML IV ONE ×2 (13:48→16:14)
[2023-03-27] MEDS ORDERED: BENZOCAINE/MENTHOL LOZENG 1 EACH LOZENGE MUCOUS MEM PRN (17:23)
[2023-03-27] MEDS ORDERED: METOCLOPRAMIDE 5 MG/ML 2 ML VIAL IVP PRN (17:23)
[2023-03-27] MEDS ORDERED: ONDANSETRON 4 MG/2 ML VIAL IVP PRN (17:24)
--- NOTE | 2023-03-27 17:35 | P.OP ---
Date of Procedure: 03/27/23 Description of Procedure: SURGEON: FREDY ESPINAL MD PREOPERATIVE DIAGNOSES: 1. Sigmoid diverticulitis with change in bowel habits 2. Dementia with memory impairment 3. Hypertensive heart disease 4. Obesity due to excess calories, BMI 31.5 5. Gastroesophageal reflux disease 6. Asthma due to chronic obstructive pulmonary disease POSTOPERATIVE DIAGNOSES: 1. Sigmoid diverticulitis with change in bowel habits 2. Dementia with memory impairment 3. Hypertensive heart disease 4. Obesity due to excess calories, BMI 31.5 5. Gastroesophageal reflux disease 6. Asthma due to chronic obstructive pulmonary disease 7. Sigmoid volvulus with intermittent bowel obstruction 8. Pelvic adhesions 9. Ureteral stricture 10. Right inguinal hernia OPERATION: 1. Robotic-assisted daVinci Xi sigmoid colectomy with low anterior resection using 29 mm Ethicon powered stapler 2. Robotic-assisted daVinci laparoscopic lysis of adhesions over 1 hour 3. Intraoperative colonoscopy used for sigmoidoscopy Anesthesia: GETA, local, regional Estimated Blood Loss (ml): 50 Pathology: 1. Sigmoid colon 2. EEA donuts 3. Proximal colotomy Condition: stable Disposition: floor COMPLICATIONS: None. Operative Findings: 1. Redundant sigmoid colon and active sigmoid volvulus adhesed to the pelvis 2. Anastomosis with EEA stapler 29 mm 3. No tension or torsion along the anastomosis 4. Doughnuts thick and both sides and viable 5. Moderately redundant sigmoid colon without tension at anastomosis 6. Negative leak test with viable anastomosis. 7. Resected colon 1.5 feet, 3 times normal length 8. Right inguinal hernia, indirect 9. Presence of left inguinal hernia without recurrence 10. Sigmoid colon with volvulus tethered to the right lower quadrant and retroperitoneum to the back INDICATIONS: The patient is a 72-year-old male who presents with change in bowel habits, sigmoid diverticulosis with tortuous colon. Multiple diagnostic studies including barium enema demonstrated severe diverticulosis and distortion of the colon suggestive of intermittent volvulus. He reports abdominal cramping, chronic constipation and abdominal pain. Benefits and risks of surgical intervention was described in detail including infection, injury to the ureter, colostomy creation, possibility for additional surgery was discussed at length. Informed consent was obtained. All questions of the patient and family were answered. DESCRIPTION: Earlier the patient had undergone a bowel prep using the enhanced colon recovery program. The patient was transferred to the operating room and placed supine. After general induction, the abdomen was prepped and draped in standard sterile fashion. Ioban was placed along the abdomen to minimize any contamination of skin floor. A Ha catheter was placed. After a timeout protocol was performed, attention was then brought to the left upper quadrant whereby a 0 degree 5 mm laparoscopic trocar entry was performed. The abdominal cavity was entered and insufflated to 15 mmHg pressure, which was tolerated well. Diagnostic laparoscopy confirmed moderately redundant sigmoid colon and active sigmoid volvulus. The small bowel was unremarkable. Next a robotic 12-mm trocar was placed along the right lateral abdominal wall 20 cm superior from the pelvis. Two 8 mm ports were placed along the upper abdomen. Ports were placed 10 cm apart from each other including 20 cm away from the target anatomy of the left pelvis. The 12-mm port was exchanged for an 8 mm robotic port at the left upper quadrant. The robot was docked along the left lateral abdomen. The patient was positioned in steep Trendelenburg position at 21-degrees. Using atraumatic graspers and vessel sealer, the robotic system was docked and primed as described. Instruments were interchanged by the volleyball assistant coach including hook cautery, needle delivery truck driver heavy, robotic stapler and vessel sealer. The robot stapler was prepared along the right lateral abdominal wall. The stapler 12-mm port was arranged along the right lateral abdominal wall. Next, attention was brought to identify the sigmoid colon. The sigmoid mesentery was mobilized using a vessel sealer whereby the descending colon. The sigmoid colon was highly redundant and adhesed to the right lower quadrant retroperitoneum with pelvic adhesions. Extensive lysis of adhesions over 1 hour was performed using vessel sealer to carefully dissect the sigmoid colon free. Features were consistent with intermittent sigmoid volvulus. Using multiple fires of the robot stapler 60 mm green loads, the proximal sigmoid colon was divided. The mesentery of the sigmoid colon was mobilized towards the pelvic brim and sacral promontory using a vessel sealer. The sigmoid volvulus was reduced with viable colon. Next, the sigmoid colon was divided using the robotic stapler 60 mm green staple loads. The rest of the sigmoid colon mesentery was mobilized using vessel sealer. Additionally, the sigmoid colon was mobilized onto the colon to minimize injury to the ureters. I went to the foot of the bed to confirm sizers and placement of 29-mm Ethicon powered stapler. I re-scrubbed into the case. The robotic arms were temporarily undocked. A 29-mm anvil was placed with a 3-0 silk sutured at the tip of the anvil tying machine operator. Then the anvil was placed via the left upper quadrant 12 mm port. All robotic arms were re-docked. I went back to the console. The staple line was opened using cautery. The anvil was entered into the proximal descending colon. The colotomy was closed using 60 mm green load. Next, the sharp tip of the anvil tying machine operator was brought through the staple line. The anvil tying machine operator was removed from the abdomen using empty clip appliers. I went to the foot of the bed to place the powered Ethicon 29 mm stapler via the rectum. The anvil and stapler were mated for 1 minute. The doughnuts were intact on both sides and thick. An intraoperative leak test was performed as I inserted the colonoscope to the anastomosis. Endoscopic images were obtained. Irrigation was placed in the pelvis and no air leaks were identified. Irrigation fluid was aspirated from the pelvis until dry. I went back to the console. All sponges and needles were removed from the abdominal cavity. The robot was undocked. I re-scrubbed into the case. Via the left upper quadrant port, the sigmoid colon was removed using 15 mm Endo Catch bag. All sponges were removed from the abdominal cavity. The left upper quadrant incision was widened to 3-cm. No contamination had occurred throughout the case. The fascial defect was oversewn using 0 Vicryl and a Avinash Mcneil. Next all pneumoperitoneum was evacuated from the abdominal cavity. The 8-mm trocar sites were reapproximated using 4-0 Monocryl in an interrupted subcuticular fashion. Local anesthetic was infiltrated to all wounds for postop analgesia. All incisions were also cleansed with diluted hydrogen peroxide. An LoudClick advance surgical dressing was placed over the colon extraction site. Liquid glue was applied to the rest of the skin incisions. The patient had tolerated the procedure well. The patient was extubated successfully. The patient was transferred to the postanesthesia care unit in stable condition. Intraoperative findings were described in detail to the patient's family.
[2023-03-27] MEDS: ONDANSETRON 4 MG/2 ML VIAL IVP SCH ×2 (18:37→23:51)
[2023-03-27] MEDS: TAMSULOSIN 0.4 MG CAP.ER.24H PO SCH ×2 (18:37→20:12)
[2023-03-27] MEDS: HYDROmorphone 1 MG/ML 1 ML SYRINGE IVP PRN ×2 (18:40→21:49)
[2023-03-27] MEDS: LORATADINE 10 MG TAB PO SCH (20:12)
[2023-03-27] MEDS: DONEPEZIL 5 MG TAB PO SCH (20:12)
[2023-03-27] MEDS: diphenhydrAMINE 25 MG CAP PO SCH (20:12)
[2023-03-27] MEDS: ASPIRIN 81 MG PO SCH (20:12)
[2023-03-27] MEDS: METOPROLOL SUCCINATE (ER) 25 MG TAB.ER.24H PO SCH (20:13)
[2023-03-27] MEDS: metroNIDAZOLE-NS PMX 500 MG in SALINE 1 100ML.BAG IVPB SCH (23:51)
[2023-03-28] MEDS: HYDROmorphone 1 MG/ML 1 ML SYRINGE IVP PRN ×2 (01:12→04:17)
[2023-03-28] MEDS: D5-0.45% NACL WITH KCL 20MEQ/L 1,000 ML IV SCH ×2 (04:17→16:03)
[2023-03-28] MEDS: ONDANSETRON 4 MG/2 ML VIAL IVP SCH ×4 (05:36→23:51)
[2023-03-28 08:04] LABS: ALT 24 U/L (4-49); AST 27 U/L (17-59); African American GFR (CKD) 73 (>60 ml/min/1.73 sqM); Albumin 3.6 g/dL (3.5-5.0); Albumin/Globulin Ratio 1.6; Alkaline Phosphatase 56 U/L (38-126); Anion Gap 11 mmol/L; Blood Urea Nitrogen 10 mg/dL (9-20); Calcium 8.3 mg/dL (8.4-10.2); Carbon Dioxide 19 mmol/L (22-30); Chloride 108 mmol/L (98-107); Globulin 2.2 g/dL; Glucose 118 mg/dL (74-99); Non-African American GFR(CKD) 63 (>60 ml/min/1.73 sqM); Potassium 4.3 mmol/L (3.5-5.1); Sodium 138 mmol/L (137-145); Total Bilirubin 0.5 mg/dL (0.2-1.3); Total Protein 5.8 g/dL (6.3-8.2)
[2023-03-28] MEDS: metroNIDAZOLE-NS PMX 500 MG in SALINE 1 100ML.BAG IVPB SCH ×3 (08:42→23:52)
[2023-03-28] MEDS: ALVIMOPAN 12 MG CAPSULE PO SCH ×2 (08:42→21:15)
[2023-03-28 09:07] LABS: Basophils % (A) 0 %; Eosinophils # (A) 0.1 k/uL (0-0.7); Eosinophils % (A) 1 %; HCT 36.2 % (39.0-53.0); HGB 12.7 gm/dL (13.0-17.5); Lymphocytes # (A) 0.6 k/uL (1.0-4.8); Lymphocytes % (A) 7 %; MCH 32.4 pg (25.0-35.0); MCHC 34.9 g/dL (31.0-37.0); MCV 92.7 fL (80.0-100.0); Mean Platelet Volume 7.8; Monocytes # (A) 0.4 k/uL (0-1.0); Monocytes % (A) 5 %; Neutrophils # (A) 6.5 k/uL (1.3-7.7); Neutrophils % (A) 85 %; Platelet Count 146 k/uL (150-450); RBC 3.91 m/uL (4.30-5.90); RDW 12.9 % (11.5-15.5); WBC 7.6 k/uL (3.8-10.6)
[2023-03-28] MEDS: ACETAMINOPHEN TAB 500 MG TAB PO SCH ×3 (11:02→23:51)
--- NOTE | 2023-03-28 14:46 | P.PN ---
Subjective Progress Note Date: 03/28/23 CHIEF COMPLAINT: Sigmoid diverticulitis HISTORY OF PRESENT ILLNESS: Patient is status post sigmoid colectomy with lower anterior resection and lysis of adhesions for sigmoid diverticulitis. Patient reports his pain is controlled. Denies any nausea or vomiting. No flatus. He is having urinary retention and had to be straight cathed. Afebrile. WBC 7.6 Hgb 12.7 platelets 146 creatinine 1.15 PHYSICAL EXAM: VITAL SIGNS: Reviewed GENERAL: Well-developed in no acute distress. HEENT: No sclera icterus. Extraocular movements grossly intact. Moist buccal mucosa. Head is atraumatic, normocephalic. Hears conversational speech. No nasal drainage. NECK: Supple without lymphadenopathy. CHEST: Non-labored respirations and equal bilateral excursions. CARDIOVASCULAR: Palpable 2+ radial pulses. ABDOMEN: Soft. Nondistended. Mild tenderness left side of abdomen at incision sites. MUSCULOSKELETAL: No clubbing or cyanosis. NEUROLOGIC: No focal or lateralizing signs. Cranial nerves II through XII grossly intact. PSYCH: Appropriate affect. Alert and oriented to person, place and time. SKIN: Well perfused. Good skin turgor. ASSESSMENT: 1. Sigmoid diverticulitis with change in bowel habits 2. Dementia with memory impairment 3. Hypertensive heart disease 4. Obesity due to excess calories, BMI 31.5 5. Gastroesophageal reflux disease 6. Asthma due to chronic obstructive pulmonary disease 7. Sigmoid volvulus with intermittent bowel obstruction 8. Pelvic adhesions 9. Ureteral stricture 10. Right inguinal hernia 11 acute kidney injury prior to surgery likely due to dehydration 12. Chronic kidney disease stage III secondary to hypertensive heart disease PLAN: -Consult urology regarding urinary retention -Increased Flomax to twice a day -Continue pain management -Encouraged patient to ambulate -Continue low fiber diet Physician Chief Operator note has been reviewed by physician. Signing provider agrees with the documented findings, assessment, and plan of care. CHIEF COMPLAINT: Diverticulitis and volvulus HISTORY OF PRESENT ILLNESS: The patient is a 72-year-old male status post low anterior resection for diverticulitis volvulus. Earlier he had urinary rete ntion. He reports voiding at least twice tonight. He is tolerating diet. He is ambulating. Pain is well-controlled. ROS: No reports of nausea and vomiting. No bowel movements. No fevers or chil ls. No new chest pain. No productive sputum PHYSICAL EXAM: VITAL SIGNS: Reviewed CONSTITUTIONAL: Well developed and in no acute distress. EYES: Conjuctivae without sclera icterus. Extraocular movements grossly intact. HEAD, EARS, NOSE, THROAT: Moist buccal mucosa. Head is atraumatic, normoce phalic. Hears conversational speech. No nasal drainage. RESPIRATORY: Non-labored respirations and equal bilateral excursions. CARDIOVASCULAR: Palpable 2+ radial pulses. ABDOMEN: Incisions intact. MUSCULOSKELETAL: No gross deformity of the lower extremities noted. No clubbing. No cyanosis. SKIN: Good skin turgor. Well perfused. NEUROLOGIC: Cranial nerves II through XII grossly intact. No focal or lateralizing signs. PSYCH: Appropriate affect. Alert and oriented to person, place and time. CLINICAL LABS: Reviewed. WBC within normal limits ASSESSMENT: 1. Sigmoid diverticulitis 2. Urethral stricture with urinary retention, resolved 3. Status post colectomy PLAN: 1. He has met discharge criteria including voiding spontaneously, tolerating diet, pain controlled 2. Disposition 24 hours with follow-up telehealth in 3 days Objective - Vital Signs Vital signs: Vital Signs Temp 98.6 F 03/28/23 12:25 Pulse 61 03/28/23 12:25 Resp 18 03/28/23 12:25 BP 114/66 03/28/23 12:25 Pulse Ox 93 L 03/28/23 07:20 FiO2 Intake & Output 03/27/23 03/28/23 03/28/23 18:59 06:59 18:59 Intake Total 3150 Output Total 400 700 Balance 2750 -700 Intake: IV 3150 Output: Urine 350 700 Estimated Blood Loss 50 Other: Voiding Method Indwelling Catheter - Labs CBC & Chem 7: 03/28/23 08:53 03/28/23 07:38 Labs: Abnormal Lab Results - Last 24 Hours (Table) 03/28/23 03/28/23 Range/Units 07:38 08:53 RBC 3.91 L (4.30-5.90) m/uL Hgb 12.7 L (13.0-17.5) gm/dL Hct 36.2 L (39.0-53.0) % Plt Count 146 L (150-450) k/uL Lymphocytes # 0.6 L (1.0-4.8) k/uL Chloride 108 H (98-107) mmol/L Carbon Dioxide 19 L (22-30) mmol/L Glucose 118 H (74-99) mg/dL Calcium 8.3 L (8.4-10.2) mg/dL Total Protein 5.8 L (6.3-8.2) g/dL
[2023-03-28 19:40] VITALS: RESP 16
[2023-03-28] MEDS: TAMSULOSIN 0.4 MG CAP.ER.24H PO SCH (21:15)
[2023-03-28] MEDS: LORATADINE 10 MG TAB PO SCH (21:15)
[2023-03-28] MEDS: diphenhydrAMINE 25 MG CAP PO SCH (21:15)
[2023-03-28] MEDS: METOPROLOL SUCCINATE (ER) 25 MG TAB.ER.24H PO SCH (21:15)
[2023-03-28] MEDS: ASPIRIN 81 MG PO SCH (21:15)
[2023-03-28] MEDS: DONEPEZIL 5 MG TAB PO SCH (21:16)
[2023-03-29] MEDS: D5-0.45% NACL WITH KCL 20MEQ/L 1,000 ML IV SCH (04:17)
[2023-03-29] MEDS: ONDANSETRON 4 MG/2 ML VIAL IVP SCH (05:36)
[2023-03-29] MEDS: ACETAMINOPHEN TAB 500 MG TAB PO SCH ×2 (05:36→12:17)
[2023-03-29] MEDS: LACTATED RINGERS 1,000 ML IV SCH (07:16)
[2023-03-29 09:05] VITALS: BP 129/81; PULSE 87; TEMP 98.2
[2023-03-29] MEDS: TAMSULOSIN 0.4 MG CAP.ER.24H PO SCH (10:00)
[2023-03-29] MEDS: metroNIDAZOLE-NS PMX 500 MG in SALINE 1 100ML.BAG IVPB SCH (10:00)
[2023-03-29] MEDS: ALVIMOPAN 12 MG CAPSULE PO SCH (10:00)
--- NOTE | 2023-03-29 11:16 | P.DS ---
Providers Date of admission: 03/26/23 11:09 Attending physician: Lsia Montejo Consults: 03/29/23 09:28 Consult Physician Routine Consulting Provider: Werner Ambriz Consult Reason/Comments: urethral stricture Do you want consulting provider notified?: Already Contacted Primary care physician: Gilberto Carcamo [facility] Course: Patient is a 72 year old male with chronic large bowel obstruction who was offered laparoscopic sigmoid colectomy. Patient underwent laparoscopic sigmoid colectomy on 03/27/23 without complication and was transferred to the surgical asher postop in stable condition. Postoperatively patient recieved IV and PO pain control. His diet as advanced which he was able to tolerate. He had a return in bowel function with flatus. He was able to ambulate and void without issue. Lawrence dos santos was then made to discharge patient home in stable condition. Plan - Discharge Summary Discharge Rx Participant: No New Discharge Prescriptions: New Acetaminophen Tab [Tylenol] 1,000 mg PO Q6HR PRN #30 tablet PRN Reason: Pain Cyclobenzaprine [Flexeril] 10 mg PO TID #30 tab Simethicone [Gas-X] 125 mg PO AC-TID PRN #20 capsule PRN Reason: Pain Continue diphenhydrAMINE [Benadryl] 25 mg PO HS Cetirizine HCl [Zyrtec] 10 mg PO HS Donepezil [Aricept] 5 mg PO HS Aspirin EC [Ecotrin Low Dose] 81 mg PO HS Cholecalciferol [Vitamin D3 (25 Mcg = 1000 Iu)] 25 mcg PO DAILY #20 tab Metoprolol Succinate (ER) [Toprol XL] 25 mg PO HS Cyanocobalamin (Vitamin B-12) [Vitamin B-12] 5,000 mcg PO DAILY Discontinued Acetaminophen/Diphenhydramine [Tylenol PM 500-25mg] 1 tab PO HS Ibuprofen/Diphenhydramine HCl [Advil Pm Liqui-Gels] 1 each PO HS Discharge Medication List Cetirizine HCl [Zyrtec] 10 mg PO HS 07/01/14 [History] diphenhydrAMINE [Benadryl] 25 mg PO HS 07/01/14 [History] Aspirin EC [Ecotrin Low Dose] 81 mg PO HS 01/28/21 [History] Cholecalciferol [Vitamin D3 (25 Mcg = 1000 Iu)] 25 mcg PO DAILY #20 tab 01/30/21 [Rx] Cyanocobalamin (Vitamin B-12) [Vitamin B-12] 5,000 mcg PO DAILY 03/21/23 [History] Donepezil [Aricept] 5 mg PO HS 03/21/23 [History] Metoprolol Succinate (ER) [Toprol XL] 25 mg PO HS 03/21/23 [History] Acetaminophen Tab [Tylenol] 1,000 mg PO Q6HR PRN #30 tablet 03/28/23 [Rx] Cyclobenzaprine [Flexeril] 10 mg PO TID #30 tab 03/28/23 [Rx] Simethicone [Gas-X] 125 mg PO AC-TID PRN #20 capsule 03/28/23 [Rx] Follow up Appointment(s)/Referral(s): Lisa Montejo MD [STAFF PHYSICIAN] - 04/01/23 (TELEHEALTH) Patient Instructions/Handouts: Low Fiber Diet (DC), Colectomy Diet (DC), Laparoscopic Bowel Resection (DC) Activity/Diet/Wound Care/Special Instructions: TELEHEALTH - DR CALLS YOU BETWEEN 8 am and 8 pm EXPECT BOWEL MOVEMENT WITH BLOOD FOR 1 WEEK TAKE LAXATIVE FOR CONSTIPATION AFTER 4 DAYS, 04/01/23 Wear abdominal binder for comfort. No lifting over 4 pounds in 4 weeks Apr 28August shower. No bath tub soaks for two weeks until Apr 04 Avoid steak, tough meats and seeds such as raspberry seeds. See diverticulitis, low fiber, colectomy diet Use Tylenol and ibuprofen scheduled for the next 24-48 hours for best pain relief. Use ice along incisions for today to prevent swelling. Discharge Disposition: HOME SELF-CARE
--- NOTE | 2023-03-29 11:43 | P.GSCN ---
History of Present Illness Consult date: 03/29/23 Reason for Consult: urinary retention History of present illness: this is a 72-year-old male that underwent sigmoid resection by Dr. Madison. Patient developed urinary retention postoperatively has required straight cath 2. He indicated following his second straight cath he has been able to void prior to that he was not able to void. This morning he denies any difficulty voiding indicates she is able to void to completion without any straining with a good stream. No previous history of urinary retention. Review of Systems - Constitutional Denies chills, Denies fever - EENT Ears, nose, mouth and throat: Denies dysphagia - Cardiovascular Denies chest pain, Denies shortness of breath - Respiratory Denies cough, Denies 7 - Gastrointestinal Reports as per HPI - Genitourinary Denies dysuria, Denies hematuria - Neurological Denies headaches, Denies syncope Past Medical History Past Medical History: Asthma, GERD/Reflux, Hypertension, Memory Impairment, Osteoarthritis (OA), Pneumonia Additional Past Medical History / Comment(s): Environmental allergies., Hx vocal cord paralysis, states very small throat ., repair hiatal hernia, hx of hospitalization for Covid., states "twisted and drooping bowel". History of Any Multi-Drug Resistant Organisms: None Reported Past Surgical History: Hernia Repair, Joint Replacement, Orthopedic Surgery Additional Past Surgical History / Comment(s): HERNIA INFANT, TESTICLE LOWERED, INGUINAL HERNIA(2006), ARSENIO KNEE ARTHROSCOPY(2007), hiatal hernia surgery ., arsenio total knee replaced Past Anesthesia/Blood Transfusion Reactions: Previous Problems w/ Anesthesia Additional Past Anesthesia/Blood Transfusion Reaction / Comm: HICCUPS FOR A COUPLE DAYS POST-OP. STATES HE HAS A VERY SMALL THROAT AND WAS TOLD TO LET THE [facility] KNOW IF ANY TUBES PUT DOWN HIS THROAT. HX OF VOCAL CORD PARALYSIS. Past Psychological History: No Psychological Hx Reported Smoking Status: Former smoker Past Alcohol Use History: None Reported Additional Past Alcohol Use History / Comment(s): smoked as teenager. Past Drug Use History: None Reported - Past Family History Sister(s) Family Medical History: Cancer Additional Family Medical History / Comment(s): BREAST CA Medications and Allergies Home Medications Medication Instructions Recorded Confirmed Type Cetirizine HCl [Zyrtec] 10 mg PO HS 07/01/15 03/21/23 History diphenhydrAMINE [Benadryl] 25 mg PO HS 07/01/14 03/21/23 History Aspirin EC [Ecotrin Low Dose] 81 mg PO HS 01/28/21 03/21/23 History Cholecalciferol [Vitamin D3 (25 25 mcg PO DAILY #20 tab 01/30/21 03/21/23 Rx Mcg = 1000 Iu)] Cyanocobalamin (Vitamin B-12) 5,000 mcg PO DAILY 03/21/23 03/21/23 History [Vitamin B-12] Donepezil [Aricept] 5 mg PO HS 03/21/23 03/21/23 History Metoprolol Succinate (ER) [Toprol 25 mg PO HS 03/21/23 03/21/23 History XL] Acetaminophen Tab [Tylenol] 1,000 mg PO Q6HR PRN #30 tablet 03/28/23 Rx Cyclobenzaprine [Flexeril] 10 mg PO TID #30 tab 03/28/23 Rx Simethicone [Gas-X] 125 mg PO AC-TID PRN #20 capsule 03/28/23 Rx Allergies Allergy/AdvReac Type Severity Reaction Status Date / Time No Known Allergies Allergy Verified 03/27/23 10:42 Surgical - Exam Vital Signs Temp Pulse Resp BP Pulse Ox 97.1 F L 97 18 144/83 97 03/26/23 09:46 03/26/23 09:46 03/26/23 09:46 03/26/23 09:46 03/26/23 09:46 - General no distress, no pain - Eyes normal ocular movement, no pale - ENT normal nares, normal mucosa - Respiratory normal expansion, normal respiratory effort - Abdomen Abdomen: soft, non tender - Psychiatric oriented to time, oriented to person, oriented to place Results - Labs 03/28/23 08:53 03/28/23 07:38 Assessment and Plan Assessment: status post sigmoid resection developed urinary retention postoperatively. No previous history of urinary retention. He is able to void this morning -Recommend checking postvoid residual, if less than 300 mL he is okay for discharge from urology standpoint otherwise we'll continue to trend his bladder scan
== END 2023-03-29 13:19 | disposition home or self-care (01) | DRG 329 ==
LOC: ORWHC2ENDO 09:11 → 5NMEDONC 11:09 → ORWHC2ENDO 12:41
PROVIDERS: ADMIT Surgery Plastic and Reconstructive Surgery; ATTEND Surgery Plastic and Reconstructive Surgery
PROC: 0DBH8ZX Excision of Cecum, Via Natural or Artificial Opening Endoscopic, Diagnostic (ICD-10-PCS; 2023-03-26)
PROC: 0DBN4ZZ Excision of Sigmoid Colon, Percutaneous Endoscopic Approach (ICD-10-PCS; principal; 2023-03-27 11:45)
PROC: 0DJD8ZZ Inspection of Lower Intestinal Tract, Via Natural or Artificial Opening Endoscopic (ICD-10-PCS; principal; 2023-03-27 11:45)
PROC: 0DNN4ZZ Release Sigmoid Colon, Percutaneous Endoscopic Approach (ICD-10-PCS; principal; 2023-03-27 11:45)
PROC: 8E0W4CZ Robotic Assisted Procedure of Trunk Region, Percutaneous Endoscopic Approach (ICD-10-PCS; principal; 2023-03-27 11:45)
DX: K57.32 Diverticulitis of large intestine without perforation or abscess without bleeding (principal); K56.2 Volvulus; N17.9 Acute kidney failure, unspecified; J38.00 Paralysis of vocal cords and larynx, unspecified; F03.90 Unspecified dementia, unspecified severity, without behavioral disturbance, psychotic disturbance, mood disturbance, and anxiety; I13.10 Hypertensive heart and chronic kidney disease without heart failure, with stage 1 through stage 4 chronic kidney disease, or unspecified chronic kidney disease; N18.30 Chronic kidney disease, stage 3 unspecified; D12.0 Benign neoplasm of cecum; K66.0 Peritoneal adhesions (postprocedural) (postinfection); E86.0 Dehydration; R33.9 Retention of urine, unspecified; E66.09 Other obesity due to excess calories; K64.4 Residual hemorrhoidal skin tags; K64.8 Other hemorrhoids; K40.90 Unilateral inguinal hernia, without obstruction or gangrene, not specified as recurrent; N35.919 Unspecified urethral stricture, male, unspecified site; J44.89 Other specified chronic obstructive pulmonary disease; M19.90 Unspecified osteoarthritis, unspecified site; K21.9 Gastro-esophageal reflux disease without esophagitis; Z68.31 Body mass index [BMI] 31.0-31.9, adult; Z79.82 Long term (current) use of aspirin; Z79.899 Other long term (current) drug therapy; Z87.891 Personal history of nicotine dependence; Z86.16 Personal history of COVID-19
CPT/HCPCS: 45385; 80053; 85025; 88305; 88307

== ENCOUNTER → 2023-05-23 | Outpatient (CLI) | payer MEDICARE ==
--- NOTE | 2023-05-23 13:41 | CT ---
EXAMINATION TYPE: CT brain wo con DATE OF EXAM: 05/23/2023 COMPARISON: MRI 04/28/[address] 04/27/2019 HISTORY: 72-year-old male G31.84, mild cognitive impairment of uncertain significance, Memory loss, c onfusion. TECHNIQUE: Examination was done in axial plane without intravenous contrast. Coronal and sagittal r econstructions performed. CT DLP: 1225 mGycm Automated exposure control for dose reduction was used. FINDINGS: There is no evidence of acute intracranial hemorrhage, acute ischemic changes, mass, mass-effect, or extra-axial fluid collection. There is no effacement of cerebral sulci or basal subarachnoid cister ns. There is no hydrocephalus. There is no midline shift. Murillo-white matter distinction is preserv ed. Mild central volume loss with secondary mild prominence to the ventricular system remains unchanged. Benign basal ganglia calcifications. Mild patchy periventricular white matter hypodensities are uncha nged. Subcortical white matter hypodensity right frontoparietal junction unchanged. There may be some progressive atherosclerotic calcifications in the right carotid siphon. Severe mucosal thickening and opacification posterior left ethmoid air cells. Moderate mucosal thicke wes left sphenoid sinus. Orbits and globes are intact. Mastoid air cells well pneumatized. IMPRESSION: 1. Similar mild central cerebral atrophy and mild to moderate patchy burden of chronic small vessel i schemic disease. 2. There may be some progressive atherosclerotic calcifications in the right carotid siphon. 3. No acute intracranial abnormality seen. 4. Severe chronic posterior left ethmoid sinus disease. Moderate chronic within the left sphenoid sin us.
== END | disposition home or self-care (01) ==
LOC: RADCTMAIN 12:47
PROVIDERS: ATTEND Psychiatry & Neurology Neurology
DX: I67.82 Cerebral ischemia (principal)
CPT/HCPCS: 70450